=== PATIENT | female | born 1940 | race Caucasian/White ===

== ENCOUNTER 2017-02-07 00:37 | Day surgery (SDC) | payer MEDICARE, OTHER ==
[~2017-02-07] VITALS: Ht 162.6 cm; Wt 96.8 kg
[~2017-02-07 00:37] MED LIST: ACET-97 PO; CARV6.252 PO; EZET10TA PO; FLEC100T2 PO; LOSA50TA37 PO; METF500T3 PO; OMEP-113 PO; PARO20TA5 PO; POTA10TA12 PO; ROSU5TAB PO; TORS5TAB5 PO; WARF2.5T PO; WARF5TAB7 PO; slow mag PO
[2017-02-07] MEDS ORDERED: Propofol 10,000 mCg/mL 20 mL Inj ONE (00:38)
[2017-02-07] MEDS ORDERED: Lactated Ringer's 1,000 ML IV ONE ×2 (06:00→07:46)
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
[2017-02-07 13:34] VITALS: BP 157/77; PULSE 82; RESP 16; O2SAT 96
[2017-02-07] MEDS ORDERED: CARV6.252 PO (13:52)
[2017-02-07] MEDS ORDERED: ACET500C49 PO (13:52)
--- NOTE | 2017-02-07 14:00 | NUR ---
COLE ADMIT 76 YR OLD FEMALE ADMITTED TO [facility] FOR CARDIOVERSION WITH ANESTHESIA TODAY AT 1300. IV STARTED, LABS SENT, AND QUESTIONS ANSWERED.
[2017-02-07] MEDS ORDERED: Atropine 1 mg/10 mL (Code) Syringe ONE (14:19)
[2017-02-07 14:26] VITALS: BP 133/50; PULSE 40; RESP 14; O2SAT 97
[2017-02-07 14:29] VITALS: BP 131/50; PULSE 41; RESP 14; O2SAT 97
--- NOTE | 2017-02-07 14:31 | PCM.ANEP1 ---
Post Anesthesia PACU Phase 1 Assessment Vital Signs Vital Signs Date Time Temp Pulse Resp B/P Pulse Ox O2 Delivery O2 Flow Rate FiO2 02/07/17 14:29 41 14 131/50 97 Nasal Cannula 4.00 02/07/17 14:26 40 14 133/50 97 Nasal Cannula 4.00 02/07/17 13:34 37.0 82 16 157/77 96 Room Air Anesthetic Administered: GA Level of Alertness: Awake, talking REZA's with Equal Strength: Yes Pain: No Nausea or Vomiting: No CV Function & Hydration Stable: Yes Airway Device: Oxygen Delivery: Room Air Lungs: Normal Air Movement PACU Phase 2 Assessment Complications: No Follow up Care: No Patient Instructions Provided: N/A Roger Chung MD Feb 07, 2017 14:31
[2017-02-07] MEDS ORDERED: 0.9% Sodium Chloride 1,000 ML IV ONE (14:32)
[2017-02-07 14:35] VITALS: BP 136/52; PULSE 41; RESP 14; O2SAT 97
[2017-02-07] MEDS ORDERED: HYDROcodone-APAP 5-325 mg Tablet PO PRN (14:35)
[2017-02-07] MEDS ORDERED: Ondansetron 2 mg/mL 2 mL Inj IVPUSH PRN (14:35)
[2017-02-07 14:45] VITALS: BP 129/52; PULSE 42; RESP 14; O2SAT 95
[2017-02-07 15:00] VITALS: BP 138/52; PULSE 42; RESP 14; O2SAT 94
--- NOTE | 2017-02-07 15:05 | OP ---
[address] [address] CARDIOVERSION NOTE PATIENT: HAI LARA : 1940 MR#: [id number] ADMIT: 02/07/2017 JOB ID: [id number] DATE OF PROCEDURE: 02/07/2017 PROCEDURE PERFORMED: Direct synchronized countershock cardioversion of atrial fibrillation to sinus rhythm. INJECTION SPECIALIST: Neal Meier M.D., [facility] PREOPERATIVE DIAGNOSIS(ES): Atrial fibrillation. POSTOPERATIVE DIAGNOSIS(ES): Atrial fibrillation successfully converted to sinus bradycardia. INDICATIONS: The patient is a 76-year-old female with a long history of recurrent atrial fibrillation, the last such cardioversion in October 2014. She now presents with recurrent atrial fibrillation with a sense of generalized fatigue. Her flecainide has been increased but she continues with atrial fibrillation. TECHNIQUE: After informed consent was obtained, the patient was brought to the [facility] in the fasting state with documentation of ProTimes over the last month being in excess of 2.0. Today's INR was 2.6. SEDATION: Was provided by the anesthesiology service which included Versed followed by propofol which produced prompt and excellent sedation. DESCRIPTION OF PROCEDURE: A single 150 joule direct current synchronized biphasic countershock was applied via anterior and posterior patches with subsequent junctional rhythm followed by sinus bradycardia in the 40s. She maintained spontaneous respiration. She tolerated the procedure well and there were no complications. FINDINGS: 1. Successful cardioversion of atrial fibrillation to sinus bradycardia with a single 150 joule biphasic synchronized shock. 2. She had subsequent bradycardia in the 40s but was asymptomatic. 3. Adequate sedation using Versed followed by propofol. DISCUSSION AND RECOMMENDATION: The patient's flecainide has been optimized with an adequate flecainide level. We will again assess whether she notes any symptomatic improvement with rastafari of sinus rhythm. I will have her followup with a physician machine operator assistant in several weeks with an EKG. I will have her followup with Stef Mann in several weeks to reassess her rhythm and symptoms. She can followup with me at the next available appointment. In the meantime, I will have her reduce her carvedilol slightly because of her bradycardia down to just 6.25 mg b.i.d. MTDD
--- NOTE | 2017-02-07 16:11 | NUR ---
COLE DISCHARGE PT AWAKE AND SITTING AT EDGE OF BED, TOLERATED PROCEDURE WELL. SEE ANESTHESIA PAPER FLOW SHEET FOR DETAILS OF CARDIOVERSION. PT CONVERTED TO SB, POST EKG OBTAINED. DISCHARGE INSTRUCTIONS INCLUDING MEDICATIONS, F/U, AND POST SEDATION AND CV INSTRUCTIONS WERE REVIEWED AND PT VERBALIZED UNDERSTANDING. SHE WAS DISCHARGED AT 1530 IN STABLE CONDITION WITH .
== END 2017-02-07 23:59 | disposition home or self-care (01) ==
LOC: SOUO 00:37
PROVIDERS: ATTEND Specialist
DX: I48.1 Persistent atrial fibrillation (principal); G47.33 Obstructive sleep apnea (adult) (pediatric); I10 Essential (primary) hypertension; E78.5 Hyperlipidemia, unspecified; I27.2 Other secondary pulmonary hypertension; I65.23 Occlusion and stenosis of bilateral carotid arteries; Z79.899 Other long term (current) drug therapy; Z86.711 Personal history of pulmonary embolism; Z79.01 Long term (current) use of anticoagulants; K21.9 Gastro-esophageal reflux disease without esophagitis; E11.9 Type 2 diabetes mellitus without complications; Z87.891 Personal history of nicotine dependence; Z79.84 Long term (current) use of oral hypoglycemic drugs
CPT/HCPCS: 36415; 80048; 83735; 92960; 93005; J2250

== ENCOUNTER 2017-02-10 06:06 | Inpatient (IN) | payer MEDICARE, OTHER ==
[2017-02-10] VITALS (16 sets, daily range): BP systolic 131–206; BP diastolic 39–85; PULSE 51–76; RESP 12–32; O2SAT 78–98
[~2017-02-10] VITALS: Ht 162.6 cm; Wt 94.0 kg
[~2017-02-10 06:06] MED LIST changes: -ACET-97 PO; +ACET500C49 PO; -OMEP-113 PO; -POTA10TA12 PO
--- NOTE | 2017-02-10 06:25 | ED.REPORT ---
HPI-General Illness Date of Service Feb 10, 2017 ED Provider: Dr. Burrows Pt is a 76 year old female with a hx of afib on Warfarin, DM II and HTN presenting to the ED complaining of malaise and fatigue after a cardioversion a few days ago. She reports that she "just feels rotten." Associated symptoms include dyspnea on exertion, subjective fever, sore throat, and swollen glands. Denies SOB at rest, cough, or any other symptoms at this time. She was taken off Potassium following the cardioversion but has been taking Carvedilol. On arrival the pt's oxygen levels are in the 80s. She denies being on O2 at home. Nursing Notes Stated Complaint: JAW/THROAT Chief Complaint: Dysrhythmia/Cardiac Nursing Notes Reviewed: Yes Allergies: Coded Allergies: niacin (Verified Allergy, Severe, Anaphylaxis, 02/10/17) quinine (Verified Allergy, Unknown, 02/10/17) Scheduled ([slow mag]) 286 MG PO BID Acetaminophen (Acetaminophen) 500 Mg Capsule 500-1,000 MG PO Q4-6 HR PRN Carvedilol (Carvedilol) 6.25 Mg Tablet 6.25 MG PO QPM Carvedilol (Carvedilol) 6.25 Mg Tablet 12.5 MG PO QAM Ezetimibe (Zetia) 10 Mg Tablet 10 MG PO DAILY Flecainide Acetate (Flecainide Acetate) 100 Mg Tablet 100 MG PO BID Losartan Potassium (Losartan Potassium) 50 Mg Tablet 50 MG PO BID Metformin ER (Glucophage XR) 500 Mg Tab.er.24h 500 MG PO BID Paroxetine (Paroxetine) 20 Mg Tablet 20 MG PO DAILY Rosuvastatin Calcium (Crestor) 5 Mg Tablet 5 MG PO HS Torsemide (Torsemide) 5 Mg Tablet 10 MG PO AM Warfarin Sodium (Warfarin Sodium) 5 Mg Tablet 2.5 MG PO WEEKLY Miscellaneous Medications Warfarin Sodium (Warfarin Sodium) 5 Mg Tablet 5 MG PO EVERYDAY EXCEPT SATURDAY General Time Seen by MD: 06:24 Chief Complaint Not feeling well Hx Obtained From: Patient Arrived By: Walk-in Sudden in Onset?: No Onset Occurred: Just prior to arrival Symptom Duration: Since onset Location: : Mouth Quality: Painful Severity: Current: Mild Severity: Maximum: Mild Recent Healthcare: No recent hospitalization, Recent doctor visit Similar Sx Previous: No Past Medical History Past Medical History Notes: PMD Bal Past Medical History Afib on Warfarin Cardioverssion a few days ago Reports: Diabetes mellitus, Hyperlipidemia, Hypertension Family History Reviewed not relevant Smoking History Former Smoker Social History Alcohol Use: Denies alcohol use Drug Use: Denies drug use Ambulatory Status Independent Review of Systems Full Review of Systems Constitutional: Reports: Fatigue, Fever, Malaise Ears / Nose / Throat: Reports: Sore throat Respiratory: Reports: Dyspnea on exertion, Denies: Non-productive cough, Shortness of breath Cardiovascular: Denies: Chest pain Complete sys rev & neg: except as marked. Physical Exam Vital Signs Vital Signs Date Time Temp Pulse Resp B/P Pulse Ox O2 Delivery O2 Flow Rate FiO2 02/10/17 08:21 51 16 137/45 78 Room Air 02/10/17 06:32 53 16 145/45 95 Nasal Cannula 2 02/10/17 06:21 37.2 54 12 150/40 84 Room Air Initial VS: Reviewed Head / Eyes: Atraumatic, Normocephalic, PERRL ENT: Mucous membranes moist, Conjunctiva normal, No scleral icterus Respiratory: Breath sounds normal, Clear to auscultation, No respiratory distress Abdomen / GI: Soft, Non-tender, No guarding, No rebound, No distention Extremities: Vascular intact, Neuro intact, No swelling, No tenderness Skin: Warm, Dry, No cyanosis Neurologic: Alert, Oriented, Nonfocal Psychiatric: Mood/affect normal, Behavior normal, Normal thought content General/Constitutional: Awake, Alert Hypoxic Cardiovascular: Heart rate NL, Regular rhythm Heart Sounds / Murmur: Positive: Murmur present... (II/ at apex) Lower Extremity / Pelvis / MS: Atraumatic, Inspection NL, No edema Interpretation & Diagnostics Lab Results Interpretation Result Diagram: 02/10/17 0635 02/10/17 0635 Test 02/10/17 06:35 White Blood Count 8.4th/mm3 (3.8-10.1) Red Blood Count 3.09mil/mm3 (3.90-5.20) Hemoglobin 9.8g/dL (12.0-15.6) Hematocrit 30.2% (35.0-46.0) Mean Corpuscular Volume 97.7fL (81-100) Mean Corpuscular Hemoglobin 31.7pg (27.0-35.0) Mean Corpuscular Hemoglobin Concent 32.5% (32.0-37.0) Red Cell Distribution Width 13.3% (12.3-15.4) Platelet Count 134bil/L (150-400) Neutrophils (%) (Auto) 79.9% (40-74) Lymphocytes (%) (Auto) 6.0% (14-46) Monocytes (%) (Auto) 11.1% (4-12) Eosinophils (%) (Auto) 2.4% (0-5) Basophils (%) (Auto) 0.4% (0-3) Prothrombin Time 34.5sec (8.1-12.5) Prothromb Time International Ratio 3.15ratio Sodium Level 138mEq/L (134-144) Potassium Level 5.1mEq/L (3.5-5.2) Chloride Level 103mEq/L (97-108) Carbon Dioxide Level 20mmol/L (18-29) Blood Urea Nitrogen 46mg/dL (8-27) Creatinine 1.24mg/dL (0.57-1.00) Estimat Glomerular Filtration Rate 60mL/min (>59) Glucose Level 186mg/dL (60-99) Calcium Level 8.7mg/dL (8.5-10.1) Magnesium Level 2.2mg/dL (1.6-2.6) Total Bilirubin 1.4mg/dL (0.0-1.2) Aspartate Amino Transf (AST/SGOT) 20U/L (0-50) Alanine Aminotransferase (ALT/SGPT) 14U/L (0-32) Alkaline Phosphatase 49U/L (25-165) Pro-B-Type Natriuretic Peptide 869.2pg/mL (0-738) Total Protein 6.8g/dL (6.4-8.4) Albumin 3.9g/dL (3.4-5.0) Hold Forrest Top Tube Received (Received) ECG Interpretation ECG Interpretation: Sinus bradycardia. 1st degree AV block. Nonspecific ST changes. Non changed from prior. Time: 06:29 Interpreted by: ED physician Abnormal Rate: 40 (47) Time: 08:52 Interpreted by: ED physician Normal ECG Interpretation: Normal sinus rhythm Abnormal Rate: 40 (46) X-Ray Chest Interpretation Chest Xray Interpretation: IMPRESSION: Chronic mild interstitial prominence, mildly reduced inspiratory volume, no definite acute disease. Dictated by: Deon Freeman M.D. on 02/10/2017 at 7:48 View: Portable, 1 view Interpretation / Wet Read by: Interpret - Radiologist Re-Eval/Medical Decision Med Decision/Clinical Course Will admit. Time of Eval: 08:09 Patient Status: Condition improved Re-Evaluation/Progress Note: Pt feeling a bit better. Took her off Oxygen and her SATs went down to 79. Pt put back on Oxygen. Consultation #1: Referral / Consult Name: Ethel Early MD Consulted With: Cardiology Call Returned at: 08:19 Note: Recommends admission and probable pacemaker. Continue Coumadin and plan to have Dr. Dobbs see the patient. Consultation #2: Referral / Consult Name: PETER ZAVALETA DO Consulted With: Hospitalist Call Returned at: 09:10 Sas Sql Developer: Will see patient, Agrees with plan, Accepts admit Counseled Regarding: Diagnosis, Lab results, Need for follow-up, When/why to return to ED Discharge & Departure Primary Impression: Atrial fibrillation Atrial fibrillation type: chronic Qualified Code: I48.2 - Chronic atrial fibrillation Disposition: ADMITTED TO HOSPITAL Discharge Condition All VS Reviewed: Yes Condition: Improved Referrals: Valeriano Rader MD (PCP) Monique Attestation Portions of this note were transcribed by Bonnie Baum. I, Dr. Burrows personally performed the history, physical exam and medical decision-making; I reviewed and confirmed the accuracy of the information in the transcribed note. Signed by: Monique Mckeon, 02/10/2017 at 0911. copies to: Valeriano Rader MD, Timothy S DO Feb 10, 2017 06:25 BONNIE BAUM Feb 10, 2017 06:35 BONNIE BAUM Feb 10, 2017 06:35 reviewed and confirmed the accuracy of the information in the transcribed note. Signed by: Monique Mckeon, 02/10/2017 at 0911. copies to: Valeriano Rader MD, Timothy S DO Feb 10, 2017 06:25 BONNIE BAUM Feb 10, 2017 06:35
[2017-02-10 06:56] LABS: BASOPHILS % (AUTO) 0.4 % (0-3); EOSINOPHILS % (AUTO) 2.4 % (0-5); MONOCYTES % (AUTO) 11.1 % (4-12); Mean Corpuscular Hemoglobin 31.7 pg (27.0-35.0); Mean Corpuscular Volume 97.7 fL (81-100); NEUTROPHILS % (AUTO) 79.9 % (40-74); Platelet Count 134 bil/L (150-400)
[2017-02-10 07:07] LABS: INR 3.15 ratio
[2017-02-10 07:13] LABS: TROPONIN T 0.01 ug/L (0.0-0.011)
[2017-02-10 07:24] LABS: Magnesium 2.2 mg/dL (1.6-2.6)
--- NOTE | 2017-02-10 07:50 | DRSVH ---
PROCEDURE: X-RAY CHEST ONE VIEW, PORTABLE ([id number]) INDICATIONS: malaise TECHNIQUE: One view of the chest was acquired. COMPARISON: [facility], CR, XR CHEST 2VW, 08/29/2015, 16:06. [facility], CR , XR CHEST 2VW, 07/28/2015, 13:25. FINDINGS: Surgical changes and devices: None. Lungs and pleura: No pleural effusions or pneumothorax. Lungs are clear except for a mild interstit ial prominence chronically present superimposed on mildly reduced inspiratory volume. Mediastinum: Mediastinal contours appear normal. Heart size is normal. Bones and chest wall: No suspicious bony lesions. Overlying soft tissues appear unremarkable. IMPRESSION: Chronic mild interstitial prominence, mildly reduced inspiratory volume, no definite acu te disease. Dictated by: Deon Freeman M.D. on 02/10/2017 at 7:48 Approved by: Deon Freeman M.D. on 02/10/2017 at 7:49
[2017-02-10] MEDS ORDERED: Ondansetron 2 mg/mL 2 mL Inj IVPUSH PRN (08:45)
[2017-02-10] MEDS ORDERED: Alum-Mag Hydrox-Simeth 30 mL Suspension PO PRN (08:45)
[2017-02-10] MEDS ORDERED: Polyethylene Glycol (PEG) 17 Gm Powder PO PRN (08:45)
[2017-02-10] MEDS ORDERED: Famotidine 10 mg/mL 2 mL Inj IVPUSH ONE (09:40)
--- NOTE | 2017-02-10 10:30 | PCM.HPMED ---
Subjective Date of Service Feb 10, 2017 Primary Provider: Admitting Physician: Shaq Landa DO Primary Care Physician: Valeriano Rader MD Attending Physician: Shaq Landa DO Chief Complaint: Malaise and shortness of breath. History of Present Illness: Ms. Christen Everett is a very pleasant 76 year old female with a past medical history significant for afib on Warfarin with cardioversions "x4", DM II, SHAWN on CPAP at home and HTN presenting to the ED complaining of malaise and fatigue after a cardioversion 02/07/17. She reports mild nausea, moderate malaise, dyspnea on exertion, lightheaded and "wobbly", subjective fevers and chills, 1 month progressive LE edema, reproducible left cheek pain and "swollen glands" following cardioversion, and some intermittent "electric" chest pain over her heart, and feeling distended. She denies syncope, headache, change in vision, vomiting, anginal pain, constipation, diarrhea, dysuria. Of note: She reports brief history of 2L O2 at night and with exertion following her 2nd cardioversion "around 2013" for O2 sats' in the 's. After 1 year she stopped using home O2. In the ED vitals are as follows; temp 37.2, HR 54, RR 12, BP 150/40, 84% RA, and 95% on 2L. Review of Systems: A comprehensive review of systems was conducted with the patient and found to be negative except as above in the History of Present Illness. Allergies Coded Allergies: niacin (Verified Allergy, Severe, Anaphylaxis, 02/10/17) quinine (Verified Allergy, Unknown, 02/10/17) Home Medications Acetaminophen (Acetaminophen) 500 Mg Capsule 500 MG PO Q4-6 HR PRN Carvedilol (Carvedilol) 6.25 Mg Tablet 6.25 MG PO BID Ezetimibe (Zetia) 10 Mg Tablet 10 MG PO DAILY Flecainide Acetate (Flecainide Acetate) 100 Mg Tablet 100 MG PO BID Losartan Potassium (Losartan Potassium) 50 Mg Tablet 50 MG PO BID Metformin ER (Glucophage XR) 500 Mg Tab.er.24h 500 MG PO BID Paroxetine (Paroxetine) 20 Mg Tablet 20 MG PO HS Rosuvastatin Calcium (Crestor) 5 Mg Tablet 5 MG PO DAILY Torsemide (Torsemide) 5 Mg Tablet 10 MG PO AM Warfarin Sodium (Coumadin) 2.5 Mg Tablet 2.5 MG PO DAILY PMH Afib on Warfarin Cardioverssion a few days ago Reports: Diabetes mellitus, Hyperlipidemia, Hypertension Surgical History none Family History Could not report Social History Hx Alcohol Use: No Hx Substance Use: No Hx Tobacco Use: Yes (Smoked for ~ 20 years, Quit 20 years ago.) Smoking Status: Former Smoker Exam Vital Signs Vital Sign - Last Date Time Temp Pulse Resp B/P Pulse Ox O2 Delivery O2 Flow Rate FiO2 02/10/17 08:21 51 16 137/45 78 Room Air 02/10/17 06:32 2 02/10/17 06:21 37.2 Exam General: Elderly lady lying in bed in No acute distress, well-developed and obese, well-nourished, appropriately interactive HEENT: Normocephalic, atraumatic. External ears without defect. Pupils equal, round, and reactive to light and accommodation. Anicteric sclerae, moist conjunctivae, and no lid lag. Oropharynx free of erythema and cobble stoning with moist mucosa. Neck: Supple with full range of motion. No jugular venous distension but it was difficult to evaluate due to neck habitus. No bruits. No lymphadenopathy or thyromegaly. Cardiovascular: Demarco rate and regular rhythm with no murmurs, rubs, or gallops appreciated Pulmonary: Clear to auscultation bilaterally with no crackles, wheezes, or rhonchi. Normal respiratory effort with no use of accessory muscles. Abdomen: Bowel tones present. Soft, nontender, Mildly distended. No hepatosplenomegaly or masses appreciated. Extremities: No clubbing, cyanosis, very mild lower extremity edema, or lymphadenopathy appreciated. Skin: Normal temperature, turgor, and texture; no rash, ulcers, or subcutaneous nodules appreciated. Neurological: Cranial nerves grossly intact. Normal muscle strength, tone, and bulk. Reflexes, coordination, and sensory function within normal limits. No known gait impairment. Psychiatric: Normal mood and affect. Alert and oriented to person, place, and time. Lab and Diagnostics Result Diagram: 02/10/1763402/10/17634 Assessment & Plan Ms. Christen Everett is a 76 year old lady here following cardioversion 02/07 for persistent A-fib, with malaise, hypoxia, subjective fever and chills likely here for ablation or permanent pacemaker placement. Symptomatic Bradycardia, present on admission. Active. - Patient was d/c'd home following cardioversion with HR in the 40's. 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 - Holding home flecainide, carvedilol unless HR >60 bpm. - Remote Telemetry. - Cardiology following. Recommendations appreciated. Considering - ECHO ordered. Chronic Persistent A-fib, on chronic warfarin, present on admission. Controlled. - Currently controlled with flecainide and carvedilol BID. Will hold per cards recommendations. - Patient was cardioverted 02/07 (4x cardioversions) - Will continue home warfarin for now. Acute on Chronic hypoxic respiratory failure, present on admission. Active. - Patient on 2L O2 in the ED. Previous history of 2L nocturnal home O2 in ~2014 for 1 year duration that patient d/c'd herself. - Continue pulse ox. Chronic conditions: DMII, present on admission. Active. - Heart healthy diet. - Holding home metformin. HTN - Continue home medications; losartan, torsemide. HLD - Continue home zetia SHAWN - Continue home CPAP at night. Obesity - BMI 37.3 - Heart healthy diet. - Physical therapy when appropriate. GERD - continue home omeprazole continue home Paroxetine. Acetaminophen for mild pain when necessary. Bowel regimen Senna and MiraLAX scheduled and PRN. Zofran when necessary for nausea and vomiting. SubQ heparin held for now. SCDs in place. High-risk medications: Warfarin Disposition: Likely here for > 2 midnights. Dependent upon cardiac status. Will be discharged to home when medically stable. Pain Evaluation: Adequate Pain Control Resuscitation Status: CPR: Attempt Resuscitation Time spent 55 minutes Attending Statement I have seen and evaluated the patient at bedside in addition to directly supervising care provided by resident physician. I agree with above documentation by Dr Zavaleta on 02/10/2017. Patient was admitted in stable condition as detailed above however once and floor began to decompensate quickly regard increased work of breathing and increasing oxygen requirements. X-ray demonstrated diffuse infiltrates and there is concern for flash pulmonary edema prompting administration of Lasix, which was only moderately effective in reducing patient's labored breathing. Subsequent BiPAP application effectively relieved excessive work. Patient's respiratory distress was essentially resolved at these 2 interventions and improved greatly through the afternoon. Cardiology previously counseled and evaluated patient has further plans possible intervention including pacemaker which will be considered as soon as tomorrow. PETER ZAVALETA DO Feb 10, 2017 09:51 Shaq Landa DO Feb 10, 2017 18:38
[2017-02-10] MEDS ORDERED: CARV6.252 PO (12:02)
[2017-02-10] MEDS ORDERED: WARF5TAB7 PO (12:19)
--- NOTE | 2017-02-10 13:01 | PCM.CHPCAR ---
Consult Subjective Date of service Feb 10, 2017 Date of admit Feb 10, 2017 at 08:45 Provider Requesting Consult Primary Care Physician Primary Care Physician: Valeriano Rader MD Chief Complaint Worsening Malaise, Fatigue and SOB History of Present Illness Patient is a 76 yr old female with a long history of paroxysmal atrial fibrillation on (warfarin, flecainide and carvedilol); DM, hypertension, hyperlipidemia, obstructive sleep apnea on CPAP, and chronic hypoxemic respiratory failure (on supplemental Oxygen but non-compliant). Pt is here for chief complaint of malaise, fatigue and SOB that started after her DC cardioversion on 02/07/17. Operative reports by Dr. Meier show successful cardioversion of Afib to sinus bradycardia with HR of 40 bpm. However, as pt was asymptomatic, she was sent home. She had been taking flecainide 100 mg po bid since d/c but holding off on Carvedilol due to bradycardia. Her HR at home was still low on that medicine. Last night (02/09/2017) she took carvedilol 3.125 mg x1. She says malaise has been getting progressively worse as if she got hit by a truck, accompanied by SOB, dyspnea, chills, nausea, headaches and subjective fever. She reports that she was feeling electrical pulses shooting from her sternum on the left side to her left jaw line. She denies lightneadedness, chest pain. She meets criteria for supplemental O2 (at rest 88%, with activity 82%), but is non-compliant. This morning she was fatigued, but pain free and comfortable Review of Systems Review of Systems On ROS, patient reports headaches, SOB, dyspnea , nausea, chills, malaise, fatigue, and subjective fever. 11 point ROS unremarkable except for those described in HPI General: Reports: Fatigue Isolated chills Eyes: Reports: Other Problem/recent change in vision Reduced vision Temporary vision loss Denies: Double or blurred vision Problem or recent change in eyes Respiratory: Reports: Significant dyspnea PMH Past Medical History Paroxysmal Atrial Fibrillation on Warfarin for stroke prevention, flecainide 100 mg po bid and Coreg for rhythm control. However, she has not really been taking Carvedilol since cardioversion, and was only on Flecainide Multiple DCCV - 02/08/2014, 04/14/2014, 10/25/2014 and 02/07/2017 DM - on oral hypoglycemic only HTN - controlled at home HL - (on both Rosuvastatin and Ezetimide) - controlled SHAWN - compliant wiht CPAP Chronic hypoxemic respiratory failure with normal spirometry and lung imaging; low DLCO (53% predicted) and no stigmata of pHTN by echo. Closely monitored by Dr. Mcmanus; on supplemental O2 Past Surgical History Hysterectomy Bedside Blood Glucose: 180 Scheduled ([slow mag]) 286 MG PO BID (Reported) Acetaminophen (Acetaminophen) 500 Mg Capsule 500-1,000 MG PO Q4-6 HR PRN ( Reported) Carvedilol (Carvedilol) 6.25 Mg Tablet 6.25 MG PO QPM (Reported) Carvedilol (Carvedilol) 6.25 Mg Tablet 12.5 MG PO QAM (Reported) Ezetimibe (Zetia) 10 Mg Tablet 10 MG PO DAILY (Reported) Flecainide Acetate (Flecainide Acetate) 100 Mg Tablet 100 MG PO BID (Reported) Losartan Potassium (Losartan Potassium) 50 Mg Tablet 50 MG PO BID (Reported) Metformin ER (Glucophage XR) 500 Mg Tab.er.24h 500 MG PO BID (Reported) Paroxetine (Paroxetine) 20 Mg Tablet 20 MG PO DAILY (Reported) Rosuvastatin Calcium (Crestor) 5 Mg Tablet 5 MG PO HS (Reported) Torsemide (Torsemide) 5 Mg Tablet 10 MG PO AM (Reported) Warfarin Sodium (Warfarin Sodium) 5 Mg Tablet 2.5 MG PO WEEKLY (Reported) Miscellaneous Medications Warfarin Sodium (Warfarin Sodium) 5 Mg Tablet 5 MG PO (Reported) EVERYDAY EXCEPT SATURDAY Discontinued Medications Acetaminophen (Acetaminophen) 500 Mg Tablet 500 MG PO Q4-6H (Reported) Carvedilol (Carvedilol) 25 Mg Tablet 25 MG PO BID (Reported) Carvedilol (Carvedilol) 6.25 Mg Tablet 6.25 MG PO QPM (Reported) Flecainide Acetate (Flecainide Acetate) 50 Mg Tablet 50 MG PO TID (Reported) Losartan Potassium (Losartan Potassium) 25 Mg Tablet 12.5 MG PO DAILY (Reported ) Omeprazole Magnesium (Omeprazole) 20 Mg Capsule.dr 20 MG PO PRN (Reported) Potassium Chloride ER (Potassium Chloride ER) 10 Meq Tablet.er 20 MEQ PO DAILY ( Reported) TAKE WITH FOOD Pravastatin (Pravastatin) 10 Mg Tablet 20 MG PO HS (Reported) Warfarin Sodium (Coumadin) 2.5 Mg Tablet 2.5 MG PO DAILY (Reported) TUESDAYS ONLY Current Inpatient Medications Current Medications Al Hydrox/Mg Hydrox/Simethicone 30 ml Q6H PRN PO; Start 02/10/17 at 08:45 Ondansetron HCl 4 to 8 mg Q4H PRN IVPUSH; Start 02/10/17 at 08:45 Senna 17.2 mg BID PRN PO; Start 02/10/17 at 08:45 Polyethylene Glycol 17 gm DAILY PRN PO; Start 02/10/17 at 08:45 Carvedilol 6.25 mg BID PO; Start 02/10/17 at 10:35; Stop 02/10/17 at 10:54; Status DC EZETIMIBE 10 mg DAILY PO; Start 02/10/17 at 10:35 Losartan Potassium 50 mg BID PO; Start 02/10/17 at 10:35; Stop 02/10/17 at 12:27; Status DC Paroxetine HCl 20 mg HS PO; Start 02/10/17 at 21:00 Rosuvastatin Calcium 5 mg DAILY PO; Start 02/10/17 at 10:35 Non-Formulary Medication 100 mg BID PO; Start 02/10/17 at 10:35; Stop 02/10/17 at 10:54; Status DC Torsemide 10 mg DAILY PO; Start 02/10/17 at 11:01 Pharmacy Consult 1 ea DAILY@17 XX; Start 02/10/17 at 17:00 Carvedilol 6.25 mg BID PRN PO; Start 02/10/17 at 10:55; Stop 02/10/17 at 12:24; Status DC Flecainide Acetate 100 mg BID PRN PO; Start 02/10/17 at 10:55; Stop 02/10/17 at 12:24; Status DC Losartan Potassium 50 mg DAILY PO; Start 02/11/17 at 08:30 Allergies: Coded Allergies: niacin (Verified Allergy, Severe, Anaphylaxis, 02/10/17) quinine (Verified Allergy, Unknown, 02/10/17) Family History Family History Father from Acute myocardial Infarction at age 57 Social History Hx Alcohol Use: NoHx Substance Use: NoHx Tobacco Use: Yes (Smoked for ~ 20 years, Quit 20 years ago.) Smoking Status: Former Smoker (20 pack year hx, quit 25 years ago ) Living Arrangement: with Family (with ) Exam Vital Signs Vital Sign - Last Date Time Temp Pulse Resp B/P Pulse Ox O2 Delivery O2 Flow Rate FiO2 02/10/17 11:38 59 02/10/17 11:23 36.7 24 192/84 96 Nasal Cannula 4.00 Objective General: Patient is obese female laying in bed , AAOX3, not in acute distress. She is cooperative and pleasant. HEENT: head normocephalic and atraumatic, PERRLA, EOMI, no scleral icterus, mucous membranes dry Neck: no JVD, neck supple, non-tender, no lymphadenopathy, trachea midline CV: regular rate and rhythm, s1 and s2 heard, no murmur, radial pulses 2+ and equal bilaterally Lungs: CTA BL, no wheezes, rales or rhonchi, no increased work of breathing, on Oxygen nasal canula Abdomen: normoactive bowel sounds on 4Q, soft, non-tender to palpation, no organomegally Skin: moist , no rashes or lesions Extremities: no edema Musculoskeletal: 5/5 muscle strength on UE and LE bilaterally. Psych: Pleasant and cooperative male, very interactive Lab and Diagnostics Result Diagram: 02/10/17 0635 02/10/17 0635 X-Rays, CTs and MRIs CXR on 02/10/17 MPRESSION: Chronic mild interstitial prominence, mildly reduced inspiratory volume, no definite acute disease. Dictated by: Deon Freeman M.D. on 02/10/2017 at 7:48 12-lead ECG ECG on 02/10/17 at 6:29 am showed sinus bradycardia with HR at 47, and first- degree AV block Additional Diagnostics: Her last ECHO was on 07/04/15 at [facility], which showed LV EF of 57.4%, moderate LVH, and mild left atrial enlargement. stress echo 2013 - no ischemia or prior infarct CT 2014 was reviewed- incidentally identified significant coronary calcification and aortic calcification Assessment & Plan Assessment Patient is a 76 yr old female with a long history of paroxysmal atrial fibrillation with multiple cardioversions on warfarin, flecainide and carvedilol ; hypertension, hyperlipidemia, obstructive sleep apnea on CPAP, and diabetes mellitus II who complains of malaise, fatigue and dyspnea that started after her DC cardioversion on 02/07/17. Pain Evaluation: Adequate Pain Control Plan: Tachycardia-Bradycardia syndrome -Patient presents with symptomatic bradycardia with HR in 40s -Order ECHO to gauge structural basis of afib - of note electrolytes with hyperkalemia, tsh wnl as of 12/2016 in clinic -Hold antiarrhythmics Carvedilol and Flecainide and check heart rate tomorrow for improvement -If no improvement in heart rate, discuss pacemaker placement -Contacted Dr. Dobbs and he is aware - if rate responds favourably to holding antiarrhythmics, pt becomes eligible for ablation Hypertension -Decrease Losartan from 50 mg bid to 50 mg once a day due to high potassium Hyperlipidemia -Continue home dose of Zetia and Rosuvastatin; this is the drug mix recommended by Dr. Hardeep power [facility] lipids showed tc 181 tg 267 hdl 49 ldl 79 Hypoxemia Old observation; managed by Dr. Mcmanus; recommend compliance with supplemental O2 recommendations as outlined by Dr. Mcmanus Atherosclerosis noted on CT scan - pt has coronary calcifications, and reassuring stress echo in 2013. If troponins are elevated, low threshold to repeat ischemic evaluation Atypical chest pain (electrical left sided shooting sensations in her chest)- serial troponins DM - controlled on metformin; last A1c 7.1 as of 11/01/2016. I recommend holding metformin in anticipation of possible ppm implant (which involves some iodinated contrast agent injection) Resuscitation Status: CPR: Attempt Resuscitation Attending Statement I agree with note of Dr. Aguirre. I examined the pt and participated in formulating this A&P Of note >60 min were spent on H&P, A&P, counseling and care coordination Oksana Aguirre DO Feb 10, 2017 13:01 Ethel Early MD Feb 10, 2017 14:23
--- NOTE | 2017-02-10 13:16 | NUR ---
[facility] signed [id number]
--- NOTE | 2017-02-10 13:55 | ABG ---
DateTimeAnalyzed 13:46:50 -_ pH ____7.354 - 7.350 7.450 pCO2 ___41.1__ -mmHg 35.0 45.0 pO2 ___61.9__ -mmHg 69.0 116 HCO3- ___22.9__ -mmol/L 22.0 26.0 ABE ___-2.5__ -mmol/L tHb ___11.0__ -g/dL O2Hb ___88.3__ -% COHb ____1.0__ -% 1.5 MetHb ____0.6__ -% sO2 ___89.7__ -% FIO2 ___21.0__ -% Drawn By RC - Date/Time Notified____ 13:55:00 -_ Spontaneous_RR 36 -b/min Liter_Flow ____6.00_ -L/min Oxygen Device 1 __OXYMASK - Notified By RC - Notified Whom ___DR. MCCART - K+ ____4.9__ -mmol/L tO2 ___13.7__ -Vol% Dm test _Positive -
[2017-02-10] MEDS ORDERED: Furosemide 10 mg/mL 4 mL Inj ONE (13:57)
[2017-02-10 14:43] LABS: APPEARANCE,URINE CLEAR (CLEAR,HAZY); COLOR,URINE STRAW (YELLOW); OCCULT BLOOD,URINE TRACE (NEGATIVE); UROBILINOGEN,URINE NORMAL (NORMAL)
--- NOTE | 2017-02-10 15:07 | DRSVH ---
PROCEDURE: X-RAY CHEST ONE VIEW, PORTABLE ([id number]) INDICATIONS: SHORTNESS OF BREATH TECHNIQUE: One view of the chest was acquired. COMPARISON: None. FINDINGS: Surgical changes and devices: None. Lungs and pleura: No pleural effusions or pneumothorax. Lungs are diffusely edematous. Mediastinum: Mediastinal contours appear normal. Heart size is at the upper limits of normal. Bones and chest wall: No suspicious bony lesions. Overlying soft tissues appear unremarkable. IMPRESSION: Diffuse pulmonary edema pattern, which statistically is more likely cardiogenic than inf ectious in origin. This appearance was not previously present on plain films from 2014 and 2015. Dictated by: Deon Freeman M.D. on 02/10/2017 at 15:05 Approved by: Deon Freeman M.D. on 02/10/2017 at 15:05
--- NOTE | 2017-02-10 16:44 | NUR ---
Admission received report from the ER, Cely GARCIA. patient arrived to room 2003 at 1120hrs. Assumed care at that time.
--- NOTE | 2017-02-10 16:56 | NUR ---
increased SOB at approx 1330hrs patient started c/o worsening SOB and O2 sat started to decrease. on NC at 4L/min O2 sat decreased to 88-91%, changed to OxyMask and increased to 6L/min. sats did improved to 94%. then patient used BSC. when attempting to return to bed patient became more SOB, O2 sat dropped to mid-80's in OxyMask. it took several minutes for patient to get back into bed. Sats still remained 86-90%. effort to breath increased; increased resp rate to 32-36min, patient's color became ashen/iverson and increased use of excretory muscles. Dr Malone notified. new orders received. ABGs, chest Xray and ECG ordered and initiated. Chest Xray showed worsening pulmonary edema. Cardiology was called, new orders for whitfield cath and IV lasix 40mg x1, and increased oxygen to NRB at 15L/min ordered. lasix given, whitfield catheter placed 16Fr draining pale yellow urine to gravity. patient's O2 sat improved to mid-90's, but patient still was having an increased effort to breath and showing signs of fatigue. Dr Malone and Dr Landa notified and BiPAP was ordered. patient started on BiBAP at 1500hrs. within 20-30 minutes patient showed signs of improvement; reports an easier time breathing, improved O2 sats (high 90's), improved color. patient remains on BiPAP through the rest of day shift. continue to monitor
--- NOTE | 2017-02-10 18:08 | NUR ---
Trial off BiPAP at 1800hrs removed BiPAP for dinner, trial to see if patient is able to maintain O2sat with NC at 4L/min. Dr Bentley aware and would like to put patient back on BiPAP overnight while sleeping.
--- NOTE | 2017-02-10 18:31 | NUR ---
BiPAP patient able to eat dinner while off BiPAP, but after she finished eating she started to c/o increasing SOB again and requesting that the BiPAP be restarted. O2 sat 90% on 4l/mn NC. Restarted BiPAP and O2 sat increased to 98%. patient reports feeling better on BiPAP.
--- NOTE | 2017-02-10 18:42 | DRSVH ---
[facility] [address] [place] [address] Echocardiogram Report Name: HAI LARA JStudy Date: 02/10/2017 Height: 64 in Hospital Exam Location: [facility] Weight: 213 lb Gender: Female BSA: 2.0 m2 : 1940 Age: 76 yrs BP: 192/84 mm Hg Reason For Study: TACHY-MERCEDES SYNDROME Ordering Physician: HOSPITALIST [facility] Performed By: Denis Roldan Referring Physician: WASHINGTON MENDOZA Interpretation Summary Normal sinus rhythm. Moderately dilated LV; there is apical and distal segment severe hypokinesis consistent with stress cardiomyopathy. EF is 35-40%. Moderate MAC with mild-moderate MR. Aortic valve leaflets are normal. No regurgitation or stenosis. Compared to prior study 04/17/2014 LV is more dilated. End diastolic dimension progressed from 5.2 to 6.5 cm. Cardiomyopathy is newly described Procedure: A two-dimensional transthoracic echocardiogram with color flow and Doppler was performed. The study quality was technically adequate. Comparison is made with the echocardiogram of 04/17/14. The patient was in normal sinus rhythm during the exam. Left Ventricle: The left ventricle is moderately dilated. The ejection fraction is estimated to be 35-40%. there is apical and distal segment severe hypkinesis consistent with stress cardiomyopathy. Assessment of diastolic parameters indicates a restrictive filling pattern of the left ventricle consistent with significantly elevated filling pressures. Right Ventricle: The right ventricle is mildly dilated. Right ventricular systolic function is mildly reduced. Atria: There is mild biatrial enlargement. The interatrial septum is intact with no evidence for an atrial septal defect. Mitral Valve: The mitral valve leaflets are mildly calcified. There is moderate mitral annular calcification. There is mild to moderate mitral regurgitation. There are multiple regurgitant jets present. Aortic Valve: The aortic valve is trileaflet. The aortic valve is slightly calcified. There is no aortic valve stenosis. No aortic regurgitation is present. Tricuspid Valve: The tricuspid valve is not well visualized, but is grossly normal. There is mild to moderate tricuspid regurgitation. The right ventricular systolic pressure is estimated at 62 mmHg assuming a right atrial pressure of 15 mm Hg. Pulmonic Valve: The pulmonic valve leaflets are thin and pliable; valve motion is normal. There is moderate pulmonic regurgitation. Great Vessels: The aortic root is normal size. The ascending aorta is mildly enlarged. The pulmonary artery is normal size. The IVC is dilated (diameter is greater than 2.1 cm) and it collapses less than 50% with a sniff. This suggests a high right atrial pressure of 15 mm Hg. Pericardium/ Pleura There is no pericardial effusion. There is no pleural effusion. MMode/2D Measurements & Calculations LVIDd: 6.4 cm RA long axis LVOT diam: 2.0 cm LVIDs: 5.7 cm LA A2 area: 23.7 cm AoV Opening FS: 9.7 % LA A4 area: 23.7 cm RA area IVSd: 0.74 cm LA length (vol) Ao root diam LVPWd: 0.75 cm : 22.2 cm LA vol: 78.1 ml RA vol asc Aorta Diam LA vol index : 73.7 ml RA Ao Arch Diam (Prox : 36.7 mm2 Trans): 3.2 cm IVC diam: 2.2 cm LV vidal. diameter/BSA LV sys. diameter/BSA RVD1 (basal) TAPSE: 1.8 cm (cm/m^2): 3.2 (cm/m^2): 2.9 Doppler Measurements & Calculations Ao V2 max MV E max william MV E/A: 4.8 TR max william : 154.0 cm/sec : 168.9 cm/sec Med Peak E' William : 341.1 cm/sec Ao max P.5 mmHg MV A max william TR max PG Ao mean P.2 mmHg : 35.4 cm/sec E/E' med: 42.2 : 46.5 mmHg LVOT Max William Lat Peak E' William PA V2 max : 97.9 cm/sec MVA(VTI): 1.4 cm2 : 128.8 cm/sec E/E' lat: 27.7 PA mean PG ODILON(I,D): 2.1 cm E/e' average : 3.4 mmHg sev ratio: 0.71 MV V2 mean Ao V2 mean LV V1 max PG PA V2 mean : 69.7 cm/sec : 94.5 cm/sec : 86.6 cm/sec MV mean P.1 mmHg Ao V2 VTI: 25.5 cmLV V1 VTI MV V2 VTI: 37.9 cm : 18.1 cm MV dec time: 0.18 sec ODILON(V,D): 1.9 cm2 ODILON indexed to BSA (cm^2/m^2): 1.1 Reading Physician:06:41 PM
[2017-02-10] MEDS: PARoxetine 20 mg Tablet PO SCH (21:22)
[2017-02-11] VITALS (15 sets, daily range): BP systolic 112–132; BP diastolic 48–72; PULSE 57–72; RESP 16–24; O2SAT 95–100
--- NOTE | 2017-02-11 03:24 | NUR ---
Bi-Pap/Tele A&O x 3 using call light appropriately , SBA to BCS, BiPap , 50% Fi02, NO C/O pain. Temp of 38, gave 650 tylenol , lowered temp to, 36.3. Tele S-S Demarco, 1st degree. O2 sat in mid 90's
[2017-02-11 03:35] LABS: INR 3.27 ratio
[2017-02-11 07:59] LABS: BASOPHILS % (AUTO) 0.2 % (0-3); EOSINOPHILS % (AUTO) 0.5 % (0-5); MONOCYTES % (AUTO) 10.4 % (4-12); Mean Corpuscular Volume 96.3 fL (81-100); NEUTROPHILS % (AUTO) 84.8 % (40-74); Platelet Count 127 bil/L (150-400)
[2017-02-11] MEDS ORDERED: Furosemide 10 mg/mL 4 mL Inj IVPUSH ONE (08:30)
--- NOTE | 2017-02-11 09:03 | DRSVH ---
PROCEDURE: X-RAY CHEST ONE VIEW, PORTABLE ([id number]) INDICATIONS: SHORTNESS OF BREATH TECHNIQUE: One view of the chest was acquired. COMPARISON: [facility], CR, XR CHEST 1VW (PORTABLE), 02/10/2017, 13:52. FINDINGS: Surgical changes and devices: None. Lungs and pleura: No pleural effusions or pneumothorax. Improving patchy opacities in the medial rig ht lung base. There also improved retrocardiac opacities. Mediastinum: Mediastinal contours appear normal. Heart size is normal. Bones and chest wall: No suspicious bony lesions. Overlying soft tissues appear unremarkable. IMPRESSION: Improved bibasilar patchy groundglass opacities since yesterday suggestive of improving pulmonary nito ma. Please correlate clinically. No new focal consolidation. Dictated by: Matias Rivera M.D. on 02/11/2017 at 8:59 Approved by: Matias Rivera M.D. on 02/11/2017 at 9:01
--- NOTE | 2017-02-11 10:34 | PROG NOTE ---
[address] [address] PROGRESS NOTE PATIENT: HAI LARA : 1940 MR#: [id number] ADMIT: 02/10/2017 JOB ID: [id number] DATE: 02/11/2017 SUBJECTIVE: The patient is a 76-year-old female with longstanding intermittent paroxysmal atrial fibrillation which has generally been fairly well controlled on flecainide and low-dose carvedilol, although with recent recurrence, and therefore underwent elective outpatient cardioversion on February 07, 2017, with conversion to sinus bradycardia in the 40s, but was asymptomatic. She was discharged home and noted no clear change in her symptomatology until three days later when she noted fatigue and increasing dyspnea. She had a fleeting, atypical "electrical" chest discomfort and some persistent jaw discomfort, and presented with respiratory distress. An echocardiogram now shows moderate LV systolic dysfunction with apical hypokinesis, with an EF of 35-40%, consistent with a stress related cardiomyopathy. Her ECG showed sinus rhythm, initially in the 45-60 range, and her flecainide and carvedilol were discontinued. Yesterday, she developed more significant dyspnea and required BiPAP and IV diuresis. She had no recurrent chest discomfort. This morning, she feels considerably better with less dyspnea, although still not yet at her baseline. She denies any orthopnea. She has had a mild nonproductive cough but none otherwise. PHYSICAL EXAM: Appears comfortable, in bed. HR : Has been in the 60s over the last 24 hours. BP 132/68, O2 saturation was 100% on a BiPAP 50%. She has now diuresed around 2500 mL. Lungs: Reduced breath sounds throughout, but without any rales or wheeze. CV: Regular rate and rhythm with distant heart tones but no appreciable murmurs or gallops. JVP appears to be around 6-7 cm. Abdomen: Soft, nondistended, nontender. : Landry catheter in place. Extremities: Warm without edema. LABORATORY: White count has remained normal. Hematocrit 31%. Her INR this morning is 3.3. Potassium this morning is 4.4 with a BUN of 33 and a creatinine of 1.0, down from 46 and 1.2 yesterday. Glucose 176. Troponins remain completely normal. BNP was 869. IMPRESSION: 1. Acute dyspnea with new onset cardiomyopathy. I suspect that her cardiomyopathy is related to a stress related cardiomyopathy given the timing of her cardioversion. While underlying ischemic cardiomyopathy cannot be entirely excluded, this seems unlikely given her normal troponins in the absence of any significant acute ST-segment shifts. Yet, she will likely require an ischemic evaluation at some point, but will defer today and likely tomorrow as she continues to have some evidence of volume overload. I would anticipate potential cardiac catheterization or stress test on Saturday. In the meantime, I would like to see further afterload reduction, and will increase her losartan slightly. Will continue with her current dose of torsemide and follow her electrolytes and renal function closely. 2. History of paroxysmal atrial fibrillation. Given her underlying reduced left ventricular (LV) systolic function, I agree that flecainide is relatively contraindicated. I will discuss further with Dr. Dobbs in regards to further treatment plans for her atrial fibrillation. It is not clear that she has noted any clear improvement in her symptoms following cardioversion, but this remains to be seen. I will continue with low-dose metoprolol for now and her cardiomyopathy. 3. Hypertension. She was markedly hypertensive on admission at 192/84, which may have been a precipitating factor in her dyspnea. 4. Bradycardia. This now appears to have resolved off of flecainide and her carvedilol. Whether this can be restarted or not remains to be seen, but she had tolerated this previously as an outpatient. I would consider changing her metoprolol back to carvedilol if her blood pressure remains elevated. 5. Anticoagulation. She is now currently super therapeutic. Given this, I will hold her warfarin today and will continue to hold it in anticipation of possible invasive evaluation. PLAN: 1. Increase losartan and continue to track electrolytes and renal function. 2. Continue with diuresis. 3. Continue to track electrolytes, renal function, ECG and troponins. 4. Possible cardiac catheterization or stress test on Saturday, depending upon her clinical course. 5. Further discussions with Dr. Dobbs in regards to the best course will for her atrial fibrillation. 6. Withhold warfarin 2 for now, although this will need to be restarted at some point. TIME SPENT: I spent 54 minutes reviewing the patient's medical record, interviewing and examining the patient, and documenting such.
--- NOTE | 2017-02-11 11:33 | PCM.PNMED ---
Subjective Date of Service Feb 11, 2017 Subjective Overnight the patient decompensated in regards to respiratory function with concerns for flash pulmonary edema and was placed on BiPAP. This morning she is still on BiPAP but reports feeling better with less dyspnea but not yet at her normal levels. She has a nonproductive cough but denies any fevers, chills, orthopnea, chest pain, nausea or vomiting. Exam Vital Signs Vital Sign - Last Date Time Temp Pulse Resp B/P Pulse Ox O2 Delivery O2 Flow Rate FiO2 02/11/17 10:40 62 02/11/17 08:45 CPAP/BIPAP 02/11/17 08:45 36.7 18 132/68 100 50 02/10/17 14:37 14.00 Intake and Output 02/10/17 02/10/17 02/11/17 Cumulative From/Thru 15:00 23:00 07:00 02/10/17 06:21 - 02/11/17 06:17 Intake Total 590 ml 300 ml 890 ml Output Total 2200 ml 1200 ml 3400 ml Balance -1610 ml -900 ml -2510 ml Intake Oral 590 ml 300 ml 890 ml Output Urine Total 2200 ml 1200 ml 3400 ml Exam General: Elderly lady lying in bed on oxygen HEENT: NCAT. PEERLA, EOMI. Membranes pink and dry. Neck: Supple with full range of motion. Mild JVP, no thyromegaly. Cardiovascular: Bradycardic with regular rhythm, no murmurs, rubs, or gallops appreciated but heart tones are distant Pulmonary: Rales at the bases bilaterally. Normal respiratory effort with no use of accessory muscles. Abdomen: Soft, nontender, Mildly distended. Bowel tones present. No hepatosplenomegaly. : Landry in place. Extremities: No clubbing, cyanosis, very mild lower extremity edema Skin: Normal temperature, turgor, and texture; no rash, ulcers, or subcutaneous nodules appreciated. Neurological: Cranial nerves 2-12 intact. Muscle strength normal in all extremities. No focal deficits. Psychiatric: Normal mood and affect. Alert and oriented to person, place, and time. IVs and Medications Medications Reviewed: Medications were reviewed in detail Lab and Diagnostics Result Diagram: 02/11/17 0720 02/11/17 0720 X-Rays, CTs and MRIs CXR 02/11 IMPRESSION: Improved bibasilar patchy groundglass opacities since yesterday suggestive of improving pulmonary edema. Please correlate clinically. No new focal consolidation. Dictated by: Matias Rivera M.D. on 02/11/2017 at 8:59 Approved by: Matias Rivera M.D. on 02/11/2017 at 9:01 Cardiac Echo Impressions Echo 02/10 Interpretation Summary Normal sinus rhythm. Moderately dilated LV; there is apical and distal segment severe hypokinesis consistent with stress cardiomyopathy. EF is 35-40%. Moderate MAC with mild-moderate MR. Aortic valve leaflets are normal. No regurgitation or stenosis. Compared to prior study 04/17/2014 LV is more dilated. End diastolic dimension progressed from 5.2 to 6.5 cm. Cardiomyopathy is newly described Assessment & Plan Ms. Christen Everett is a 76 year old lady here following cardioversion 02/07 for persistent A-fib, with malaise, hypoxia, subjective fever and chills likely here for ablation or permanent pacemaker placement. Symptomatic Bradycardia, present on admission. Active. - Patient was d/c'd home 02/07 following cardioversion with HR in the 40's. 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 - Holding home flecainide, carvedilol unless HR >60 bpm. - Remote Telemetry. - ECHO as above -Cardiology involved, appreciate Dr. Sweet's recommendations: Increasing Losartan Trend CMP, EKG, troponins Possible cath vs stress test on Saturday Afib conversation with Dr. Dobbs Hold warfarin at this time Acute dyspnea with new onset acute systolic congestive heart failure due to cardiomyopathy, not present on admission, improving - Pts oxygen requirement increased 02/10, requiring BiPAP to maintain oxygen saturation but is now on 5L nasal cannula - Cardioversion x4 on 02/07, suspect stess-related vs ischemic cardiomyopathy - Troponins initially normal, annika to 0.122 on 02/11 - Continue diuresis with home torsemide - Cardiology recommendations as above Chronic Persistent A-fib, on chronic warfarin, present on admission. Controlled. - Currently controlled with flecainide and carvedilol BID. Will hold per cards recommendations. - Patient was cardioverted 02/07 (4x cardioversions) - Will hold home warfarin for now per cardiology Acute on Chronic hypoxic respiratory failure, present on admission. Active. - Patient on 2L O2 in the ED. Previous history of 2L nocturnal home O2 in ~2014 for 1 year duration that patient d/c'd herself. - Continue pulse ox. Chronic conditions: DMII, present on admission. Active. - Heart healthy diet. - Holding home metformin. HTN - Continue home medications; losartan, torsemide. HLD - Continue home zetia SHAWN - Continue home CPAP at night. Obesity - BMI 37.3 - Heart healthy diet. GERD - continue home omeprazole Depression continue home Paroxetine. Acetaminophen for mild pain when necessary. Bowel regimen Senna and MiraLAX scheduled and PRN. Zofran when necessary for nausea and vomiting. SubQ heparin held for now. SCDs in place. Disposition: Likely here for > 2 midnights. Dependent upon cardiac status and response to diuresis. Will be discharged to home when medically stable. Pain Evaluation: Adequate Pain Control VTE Mechanical Devices: Intermittant Pneumatic CD Resuscitation Status: CPR: Attempt Resuscitation Attending Statement The patient was seen and examined together with Dr. Ngo on 02/11/2017 and I agree with the history, exam and plan as outlined in the note above. . Juarez Ngo DO Feb 11, 2017 11:33 Neal Cerda MD Feb 11, 2017 16:39 SubQ heparin held for now. SCDs in place. Disposition: Likely here for > 2 midnights. Dependent upon cardiac status and response to diuresis. Will be discharged to home when medically stable. Pain Evaluation: Adequate Pain Control VTE Mechanical Devices: Intermittant Pneumatic CD Resuscitation Status: CPR: Attempt Resuscitation Juarez Ngo DO Feb 11, 2017 11:33
--- NOTE | 2017-02-11 15:22 | NUR ---
Oxygen 809 - Spoke to Dr. Early via phone about his care and condition. She gave several telephone orders which were written down and carried out. She wanted to work on weaning her off the Bipap today in preparation for taking her the laboratory machinist soon. Notified Dr. Judd Ngo. 929 - Discussed her care with Dr. Cerda, Dr. Malone, and the rest of the multidisciplinary care team during morning rounds. 942 - She had been switched from the Bipap to about 6L via nasal cannula for breakfast and was tolerating it well with an SpO2 of about 95%. Notified Respiratory Therapist Juaquin Pereira of this and Dr. Early's wishes to wean her off of O2. She remained on the nasal cannula since and is tolerating it well. 1012 - The lab called and notified this nurse of a critical troponin level of 0.122. Notified Dr. Ngo. An EKG had already been ordered and was obtained. Showed it to Dr. Ngo who discussed the results with the other attending Physicians. No new orders at that time. Care continues. Addendum: 02/11/17 at 1836 by JEANETTE SIMMONS RN About 1700 - Notified Dr. Ngo that her blood glucose checks today had been 181 and 196 respectively. He said he would look into ordering some correctional insulin for her. 1830 - Noted no insulin had been ordered for her. Paged Dr. Ngo who came by right away to say thank you for the reminder and to say he would go put the order in. Care continues.
--- NOTE | 2017-02-11 16:17 | NUR ---
Social Work: Initial Assessment D: EMR reviewed. Pt is a 76 y/o female admitted for hypoxia per H&P. SW met with pt at bedside to conduct initial assessment. Pt was alert and oriented x3. SW explained role and wrote number on white board. Pt's insurance is Medicare and [employer]. PCP is Valeriano Rader MD. SW encourage pt to provide DPOA/advanced directive ppw once completed (pt has ppw at home). Pt gave verbal consent to contact spouse, Jimmy Everett ([phone]) discharge planning. Pt does not have LTC insurance or VA benefits. Pt has no hx at a SNF or . Pt is independent with ADLs. Pt does not own or use any DME. Pt does not drives. Pt lives in an with 3 steps to enter in [place] with her spouse. Pt stated her spouse will provide transport home when pt is medically stable. SW does not anticipate any discharge needs but will continue to follow and await MD orders if needs arise. A: Pt who is independent at baseline. P: Pt stated her spouse will provide transport home when pt is medically stable. SW does not anticipate any discharge needs but will continue to follow and await MD orders if needs arise. MICHELLE Leavitt Addendum: 02/11/17 at 1621 by NIALL CHILDS SS Amended: Links added.
--- NOTE | 2017-02-11 16:31 | NUR ---
spiritual care: pt request lengthy conversational visit. pt reflected on strong family ties, parenting and her pleasure in close family relationships. 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 Pt somewhat connected to [facility] but hasn't been able to attend for some time due to sofi decline.
[2017-02-11] MEDS ORDERED: Dextrose 10% 250 ML IV PRN (18:40)
[2017-02-11] MEDS ORDERED: Glucose 40% Oral Gel 15 Gm Tube PO PRN (18:40)
[2017-02-11] MEDS: PARoxetine 20 mg Tablet PO SCH (20:30)
[2017-02-11] MEDS: Insulin LISPRO 300 Unit/3 mL Inj SUBQ SCH (20:37)
[2017-02-12] VITALS (12 sets, daily range): BP systolic 115–139; BP diastolic 53–66; PULSE 51–65; RESP 16–19; O2SAT 91–99
[2017-02-12 03:21] LABS: BASOPHILS % (AUTO) 0.4 % (0-3); EOSINOPHILS % (AUTO) 2.4 % (0-5); MONOCYTES % (AUTO) 9.4 % (4-12); Mean Corpuscular Hemoglobin 31.8 pg (27.0-35.0); Mean Corpuscular Volume 95.4 fL (81-100); Platelet Count 126 bil/L (150-400)
[2017-02-12 03:36] LABS: INR 2.87 ratio
[2017-02-12 03:58] LABS: Magnesium 2.1 mg/dL (1.6-2.6)
[2017-02-12 04:09] LABS: TROPONIN T 0.054 ug/L (0.0-0.011)
--- NOTE | 2017-02-12 04:45 | NUR ---
Respiratory: When awake spo2 maintained on 6 L NC. placed on BIPAP @50% by RT for sleep. Sats in the high 90s- pt tolerating well. sleeping throughout night, care ongoing.
[2017-02-12] MEDS: Insulin LISPRO 300 Unit/3 mL Inj SUBQ SCH ×4 (07:56→21:26)
--- NOTE | 2017-02-12 12:41 | NUR ---
spiritual care:follow up brief visit. pt's in room. she offered updates on medical plan and her coping. she reiterated her good family support.
--- NOTE | 2017-02-12 13:38 | NUR ---
[facility] signed
--- NOTE | 2017-02-12 14:10 | PROG NOTE ---
[address] [address] PROGRESS NOTE PATIENT: HAI LARA : 1940 MR#: [id number] ADMIT: 02/10/2017 JOB ID: [id number] DATE: 02/12/2017 The patient feels significantly improved today and is no longer on BiPAP. In fact, she states that she feels well, better than prior to her cardioversion last week. She continues to deny any angina and her dyspnea has completely resolved. She has had no sense of any palpitations or lightheadedness. PHYSICAL EXAMINATION: HR 50s. BP 123/59. O2 saturation 96% on 5 L of nasal cannula. She had a net diuresis over the last 48 hours of around 3 L. Her weight is still not recorded. Lungs: Clear bilaterally without any rales or wheeze. CV: Regular rate and rhythm with distant heart tones but no appreciable murmurs or gallops. JVP is around 4-5 cm. Carotid pulses are 2+ with a brisk upstroke. Abdomen: Soft, nondistended, nontender. Extremities: Warm without any edema. LABORATORY: Hematocrit is 31% with an INR this morning of 2.8. BUN is 37 with a creatinine of 1.1, up from 33 and 1.0 yesterday. Potassium 3.9 with a magnesium 2.1. Her troponins peaked at 0.122 and subsequently declining. Her ECG shows sinus bradycardia with a first-degree AV block with a FL interval of 220 msec and deeply inverted T-waves across the precordium, consistent with ischemia versus a stress related cardiomyopathy. Her QT has increased. IMPRESSION: 1. New onset cardiomyopathy of uncertain etiology. I continue to believe that this most likely is a stress related cardiomyopathy but an ischemic cardiomyopathy cannot be excluded and I continue to believe that a cardiac catheterization will be helpful to exclude the latter which will help direct therapy in the future. Her INR remains elevated but hopefully will have fallen sufficiently to proceed tomorrow. I have discussed the case with Dr. Taylor and he is willing to do the case tomorrow as long as her INR remains acceptable. Will continue to withhold her warfarin and will continue with her other medications as she has compensated now quite nicely. 2. Paroxysmal atrial fibrillation. She remains in sinus rhythm. I discussed with Dr. Dobbs, who agrees that flecainide should be avoided until her heart function improves and there is no evidence for underlying ischemic heart disease. At this point, we decided to continue off of flecainide and if she has recurrent atrial fibrillation to have him consider an atrial fibrillation ablation procedure. Continue with beta dickson in the meantime and optimize electrolytes. She should restart her warfarin once her invasive procedures have been completed. 3. Hypertension. Now much improved. 4. Bradycardia. She continues to have mild sinus bradycardia but is asymptomatic. I would continue with her current dose of metoprolol. At this point, there is no clear indication for pacemaker. PLAN: 1. Continue current medications. 2. Continue to track pro times and once her INR is acceptable proceed with cardiac catheterization. If this shows no obstructive coronary disease, then I suspect that she can be discharged home on her current medications with the reinstitution of warfarin. 3. Continue to track electrolytes and renal function.
[2017-02-12] MEDS ORDERED: Dextrose 10% 250 ML IV PRN (15:05)
[2017-02-12] MEDS ORDERED: Glucose 40% Oral Gel 15 Gm Tube PO PRN (15:05)
--- NOTE | 2017-02-12 15:10 | PCM.PNMED ---
Subjective Date of Service Feb 12, 2017 Subjective Overnight there were no acute events. The patient feels significantly better today. She is off BiPAP and denies chest pain, shortness of breath, palpitations, lightheadedness or dizziness. Exam Vital Signs Vital Sign - Last Date Time Temp Pulse Resp B/P Pulse Ox O2 Delivery O2 Flow Rate FiO2 02/12/17 13:35 36.7 51 16 120/66 94 Nasal Cannula 1.00 02/12/17 04:15 50 Intake and Output 02/11/17 02/11/17 02/12/17 Cumulative From/Thru 15:00 23:00 07:00 02/10/17 06:21 - 02/12/17 05:57 Intake Total 520 ml 600 ml 2010 ml Output Total 950 ml 500 ml 4850 ml Balance -430 ml 100 ml -2840 ml Intake Oral 520 ml 600 ml 2010 ml Output Urine Total 950 ml 500 ml 4850 ml # Bowel Movements 1 1 Exam General: Elderly lady sitting upright eating breakfast HEENT: NCAT. PEERLA, EOMI. Membranes pink and dry. Neck: Supple with full range of motion. Mild JVP, no thyromegaly. Cardiovascular: Bradycardic with regular rhythm, no murmurs, rubs, or gallops appreciated but heart tones are distant Pulmonary: Slight crackles bibasilarly but much improved from yesterday. Normal respiratory effort with no use of accessory muscles. Abdomen: Soft, nontender, Mildly distended. Bowel tones present. No hepatosplenomegaly. Extremities: No clubbing, cyanosis, very mild lower extremity edema Skin: Normal temperature, turgor, and texture; no rash, ulcers, or subcutaneous nodules appreciated. Neurological: A&Ox3. Cranial nerves 2-12 intact. Muscle strength normal in all extremities. No focal deficits. Psychiatric: Normal mood and affect. IVs and Medications Medications Reviewed: Medications were reviewed in detail Lab and Diagnostics Result Diagram: 02/12/17 0250 02/12/17 0250 X-Rays, CTs and MRIs CXR 02/11 IMPRESSION: Improved bibasilar patchy groundglass opacities since yesterday suggestive of improving pulmonary edema. Please correlate clinically. No new focal consolidation. Dictated by: Matias Rivera M.D. on 02/11/2017 at 8:59 Approved by: Matias Rivera M.D. on 02/11/2017 at 9:01 Cardiac Echo Impressions Echo 02/10 Interpretation Summary Normal sinus rhythm. Moderately dilated LV; there is apical and distal segment severe hypokinesis consistent with stress cardiomyopathy. EF is 35-40%. Moderate MAC with mild-moderate MR. Aortic valve leaflets are normal. No regurgitation or stenosis. Compared to prior study 04/17/2014 LV is more dilated. End diastolic dimension progressed from 5.2 to 6.5 cm. Cardiomyopathy is newly described Assessment & Plan Ms. Christen Everett is a 76 year old lady here following cardioversion 02/07 for persistent A-fib, with malaise, hypoxia, subjective fever and chills likely here for evaluation for ablation or permanent pacemaker placement. Symptomatic Bradycardia, present on admission. Active. - Patient was d/c'd home 02/07 following cardioversion with HR in the 40's. 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 - Holding home flecainide, carvedilol unless HR >60 bpm. - Remote Telemetry. - ECHO as above -Cardiology involved, appreciate Dr. Sweet's recommendations: Increased Losartan Trend CMP, EKG, troponins Cardiac cath scheduled with Dr. Swann for 02/12 depending on INR Continue holding flecainide, if she has recurrent atrial fibrillation we can condier ablation Hold warfarin at this time, INR 2.7 Acute dyspnea with new onset acute systolic congestive heart failure due to cardiomyopathy, not present on admission, improving - Pts oxygen requirement increased 02/10, requiring BiPAP to maintain oxygen saturation but is now down to 1L nasal cannula - Cardioversion x4 on 02/07, suspect stess-related vs ischemic cardiomyopathy - Troponins initially normal, annika to 0.122 on 02/11, fell 0.54 on 02/12 - Continue diuresis with home torsemide - Cardiology recommendations as above Chronic Persistent A-fib, on chronic warfarin, present on admission. Controlled. - Currently controlled with flecainide and carvedilol BID. Will hold per cards recommendations. - Patient was cardioverted 02/07 (4x cardioversions) - Will hold home warfarin for now per cardiology - Consider ablation with Dr. Dobbs if a-fib recurs now that flecanide is held Acute on Chronic hypoxic respiratory failure, present on admission. Improving. - Patient on 2L O2 in the ED. Previous history of 2L nocturnal home O2 in ~2014 for 1 year duration that patient d/c'd herself. - Continue pulse ox. - Now down to 1L nasal cannula Chronic conditions: Diabetes Mellitus type II, present on admission. Active. - Heart healthy diet. - Holding home metformin. Hypertension - Continue home medications; losartan, torsemide. HLD - Continue home zetia SHAWN - Continue home CPAP at night. Obesity - BMI 37.3 - Heart healthy diet. GERD - continue home omeprazole Depression continue home Paroxetine. Acetaminophen for mild pain, headache, or fever when necessary. Bowel regimen Senna and MiraLAX scheduled as needed. Zofran when necessary for nausea and vomiting. SubQ heparin held for now. SCDs in place. Disposition: Patient likely here 1-2 more days dependent on her INR, cardiac procedure, and continued resposne to diuresis. She will be discharged home when medically stable. Pain Evaluation: Adequate Pain Control VTE Mechanical Devices: Intermittant Pneumatic CD Resuscitation Status: CPR: Attempt Resuscitation Attending Statement The patient was seen and examined together with Dr. Ngo on 02/12/2017 and I agree with the history, exam and plan as outlined in the note above. . Juarez Ngo DO Feb 12, 2017 15:10 Neal Cerda MD Feb 12, 2017 19:42
--- NOTE | 2017-02-12 15:57 | NUR ---
Multidisciplinary Communication 09 - Discussed her care with Dr. Cerda, Dr. Malone, and the rest of the multidisciplinary care team during morning rounds. Informed them that he was down to 5L of O2. 1036 - Spoke with Dr. Ngo and asked if her Landry catheter could be discontinued and if her telemetry could be discontinued for a shower. He said yes to both requests. 1200 - Her Landry was discontinued intact. Tolerated it well. Addendum: 02/12/17 at 1840 by JEANETTE SIMMONS RN She has urinated at least once since the Landry was discontinued and is comfortable. Care continues.
[2017-02-12] MEDS: PARoxetine 20 mg Tablet PO SCH (20:41)
[2017-02-13] VITALS (19 sets, daily range): BP systolic 125–146; BP diastolic 46–77; PULSE 49–61; RESP 12–20; O2SAT 92–100
[2017-02-13 03:37] LABS: Mean Corpuscular Hemoglobin 31.4 pg (27.0-35.0); Mean Corpuscular Volume 94.1 fL (81-100)
[2017-02-13 03:52] LABS: Magnesium 2.2 mg/dL (1.6-2.6)
[2017-02-13 04:01] LABS: INR 1.85 ratio
--- NOTE | 2017-02-13 04:49 | NUR ---
Respiratory/Cardiac/NPO/ Maintains 95% on bipap with 50% fiO2 or 90-95% 1L NC. Denies SOB/dyspnea. SB with 1st degree block 50-70's. NPO after midnight for possible cath today. BG 186 and 233 tonight. Slept quietly. Voiding appropriately after [place] DC yesterday.
[2017-02-13] MEDS: Insulin LISPRO 300 Unit/3 mL Inj SUBQ SCH ×4 (08:00→20:27)
--- NOTE | 2017-02-13 10:18 | NUR ---
NUTRITION ASSESSMENT: ASSESS: Pt is a 76yo F admitted for hypoxia. Requiring BIPAP on and off. 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 Prior to NPO status, she was on a diabetic/heart healthy diet with fair PO intake of 25-50% of meals. PMHX: Afib, DM, HLD, HTN LABS: Reviewed. Bun 48, web development consultant 1.43, Glu 155, Alb 3.5 MEDS: Reviewed. GI: BMx1 02/11 SKIN: no major issues CURRENT WTS: 94.3kg, BMI 35.7kg/m2, IBW: 54.5kg, admit wt: 96.7kg DIET: NPO for cath EST. NEEDS: BMI Kcals: 1885-2075kcal/day (20-22kcal/kg) Pro: 65-80g/day (1.2-1.5g/kg IBW) NUTRITION DIAGNOSIS: 1.) Inadequate oral intake related to decreased ability to consume sufficient energy as evidenced by current NPO status NUTRITION INTERVENTION: 1.) Recommend advance diet when medically appropriate. 2.) Will monitor PO intake once diet advanced MONITOR / EVAL: NPO, diet advc, PO, wt, GI, labs. Will continue to monitor per moderate nutrition risk guidelines
--- NOTE | 2017-02-13 12:59 | PCM.PNMED ---
Subjective Date of Service Feb 13, 2017 Subjective Overnight there were no acute events. This morning, Mrs. Everett reports feeling at her baseline but does say she is slightly anxious about the cardiac catheterization procedure scheduled today. She denies any fever/chills, chest pain, shortness of breath, palpitations. She expresses the desire to eat immediately after the procedure if possible. Exam Vital Signs Vital Sign - Last Date Time Temp Pulse Resp B/P Pulse Ox O2 Delivery O2 Flow Rate FiO2 02/13/17 09:02 36.6 51 16 129/54 92 Nasal Cannula 1.00 02/13/17 04:33 50 Intake and Output 02/12/17 02/12/17 02/13/17 Cumulative From/Thru 15:00 23:00 07:00 02/10/17 06:21 - 02/13/17 06:13 Intake Total 1200 ml 350 ml 3560 ml Output Total 1200 ml 600 ml 6650 ml Balance 0 ml -250 ml -3090 ml Intake Oral 1200 ml 350 ml 3560 ml Output Urine Total 1200 ml 600 ml 6650 ml # Voids 1 1 # Bowel Movements 1 Exam General: Elderly lady lying in her bed in NAD HEENT: NCAT. PEERLA, EOMI. Membranes pink and dry. Neck: Supple with full range of motion. Mild JVP, no thyromegaly. Cardiovascular: Bradycardic with regular rhythm, no murmurs/rubs/gallops appreciated but heart tones are distant Pulmonary: Slight crackles bibasilarly. Normal respiratory effort with no use of accessory muscles. Abdomen: Soft, nontender, Mildly distended. Bowel tones present. No hepatosplenomegaly. Extremities: No clubbing, cyanosis, very mild lower extremity edema Skin: Normal temperature, turgor, and texture; no rash, ulcers Neurological: A&Ox3. Cranial nerves 2-12 intact. Muscle strength normal in all extremities. No focal deficits. Psychiatric: Normal mood and affect. IVs and Medications Medications Reviewed: Medications were reviewed in detail Lab and Diagnostics Result Diagram: 02/13/17 0300 02/13/17 0300 X-Rays, CTs and MRIs CXR 02/11 IMPRESSION: Improved bibasilar patchy groundglass opacities since yesterday suggestive of improving pulmonary edema. Please correlate clinically. No new focal consolidation. Dictated by: Matias Rivera M.D. on 02/11/2017 at 8:59 Approved by: Matias Rivera M.D. on 02/11/2017 at 9:01 Cardiac Echo Impressions Echo 02/10 Interpretation Summary Normal sinus rhythm. Moderately dilated LV; there is apical and distal segment severe hypokinesis consistent with stress cardiomyopathy. EF is 35-40%. Moderate MAC with mild-moderate MR. Aortic valve leaflets are normal. No regurgitation or stenosis. Compared to prior study 04/17/2014 LV is more dilated. End diastolic dimension progressed from 5.2 to 6.5 cm. Cardiomyopathy is newly described Assessment & Plan Ms. Christen Everett is a 76 year old lady here following cardioversion 02/07 for persistent A-fib, with malaise, hypoxia, subjective fever and chills likely here for evaluation for ablation or permanent pacemaker placement. Symptomatic Bradycardia, present on admission. Active. - Patient was d/c'd home 02/07 following cardioversion with HR in the 40's. 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 - Holding home flecainide, carvedilol unless HR >60 bpm. - Remote Telemetry. - ECHO as above -Cardiology involved, appreciate Dr. Sweet's recommendations: Increased Losartan Trend CMP, EKG, troponins Cardiac cath scheduled with Dr. Swann for 02/13 at 1300 Continue holding flecainide, if she has recurrent atrial fibrillation we can consider ablation Hold warfarin for procedure, INR 1.85 02/13 Acute dyspnea with new onset acute systolic congestive heart failure due to cardiomyopathy, not present on admission, improving - Pts oxygen requirement increased 02/10, requiring BiPAP to maintain oxygen saturation but is now down to 1L nasal cannula - Cardioversion x4 on 02/07, suspect stess-related vs ischemic cardiomyopathy - Troponins initially normal, annika to 0.122 on 02/11, fell 0.54 on 02/12 - Continue diuresis with home torsemide - Cardiology recommendations as above Chronic Persistent A-fib, on chronic warfarin, present on admission. Controlled. - Currently controlled with flecainide and carvedilol BID. Will hold per cards recommendations. - Patient was cardioverted 02/07 (4x cardioversions) - Will hold home warfarin for now per cardiology - Consider ablation with Dr. Dobbs if a-fib recurs now that flecanide is held Acute on Chronic hypoxic respiratory failure, present on admission. Improving. - Patient on 2L O2 in the ED. Previous history of 2L nocturnal home O2 in ~2014 for 1 year duration that patient d/c'd herself. - Continue pulse ox. - O2 requirements 1-2L nasal cannula Chronic conditions: Diabetes Mellitus type II, present on admission. Active. - Heart healthy diet. - Holding home metformin. - Medium correctional scale started Hypertension - Continue home medications; losartan, torsemide. HLD - Continue home zetia SHAWN - Continue home CPAP at night Obesity - BMI 37.3 - Heart healthy diet. GERD - continue home omeprazole Depression continue home Paroxetine. Acetaminophen for mild pain, headache, or fever when necessary. Bowel regimen Senna and MiraLAX scheduled as needed. Zofran when necessary for nausea and vomiting. SubQ heparin held for now. SCDs in place. Disposition: Patient likely here 1-2 more days dependent on her INR, cardiac procedure, and continued resposne to diuresis. She will be discharged home when medically stable. Pain Evaluation: Adequate Pain Control VTE Mechanical Devices: Intermittant Pneumatic CD Resuscitation Status: CPR: Attempt Resuscitation Attending Statement The patient was seen and examined together with Dr. Ngo on 02/13/2017 and I agree with the history, exam and plan as outlined in the note above. . Juarez Ngo DO Feb 13, 2017 09:35 Neal Cerda MD Feb 14, 2017 17:34
[2017-02-13] MEDS ORDERED: Heparin 10,000 Unit/1,000 mL NS Premix IV ONE (14:12)
[2017-02-13] MEDS ORDERED: Heparin 1,000 Units/500 mL NS Premix IV ONE (14:12)
[2017-02-13] MEDS ORDERED: Nitroglycerin 50,000 mcg/250 mL D5W Premix IV ONE (14:12)
[2017-02-13] MEDS ORDERED: fentaNYL-PF 50 mCg/mL 2 mL Inj ONE (14:29)
--- NOTE | 2017-02-13 15:32 | NUR ---
Catheter Lab 0708 - Called Kenny GARCIA from IV therapy requesting that a 2nd IV be placed for her upcoming laboratory courier procedure. Was told in report she was a difficult IV start. She came and placed another IV. 08 - Informed Dr. Ngo that the Sales Agent [employer] had informed this nurse that she was starting to have some inverted T waves since last night. He acknowledged this information. Later, upon speaking to the veterinary technology instructor it was discovered she'd been having inverted T waves since 02/11/17. 08 - Called the laboratory courier and spoke to Maverick who said that her laboratory courier procedure was schedule about 1300. He said it was okay for her to receive her AM medications including her Beta Blockers. 09 - Discussed her care with Dr. Cerda, Dr. Malone, and the rest of the multidisciplinary care team during morning rounds. Informed them of her inverted T waves. This information was acknowledged. No new orders at that time. 1101 - Paged Dr. Taylor as there were concerns with her going to the laboratory courier with an INR of 1.85. He called back and said that as long as her INR was below 2 he was comfortable with performing the procedure. COLE and the laboratory courier were notified. 1354 - The laboratory courier called saying they would be there within about 30 minutes. 1415 - She left for the laboratory courier and took her cell phone with her. Care continues. Addendum: 02/13/17 at 1824 by JEANETTE SIMMONS RN 0935 - Received report from [facility] nurse who said she'd be returning to [facility] in about 30 minutes. 1715 - She arrived back to the floor. Right groin dressing clean, dry, and intact. No c/o pain and no hematoma noted. Placed back on telemetry. Bed rest and IV fluids until 1914 per MD orders. Care continues.
--- NOTE | 2017-02-13 15:39 | CS94 ---
[address] [address] DIAGNOSTIC CARDIAC CATHETERIZATION PATIENT: HAI LARA : 1940 MR#: [id number] ADMIT: 02/10/2017 JOB ID: [id number] SERVICE DATE: 02/13/2017 PATIENT PROFILE: The patient is a 76-year-old lady with history of paroxysmal atrial fibrillation, on warfarin, flecainide and carvedilol, diabetes, hypertension, hyperlipidemia, and obstructive sleep apnea on CPAP. She presented with dyspnea and was found to have new onset cardiomyopathy. PROCEDURES: 1. Retrograde left heart catheterization. 2. Selective coronary angiography. 3. Left ventricular angiogram. VASCULAR CLOSURE DEVICE: Perclose. COMPLICATIONS: None. METHOD: Retrograde left heart catheterization was performed from the right groin under 1% lidocaine local anesthesia using a 6-Malagasy sheath. Selective coronary angiogram was performed in multiple projections, including cranial and caudal angulations with hand injected contrast via JL-4 and 3DRC catheters. A 6-Malagasy angulated pigtail catheter was advanced to the left ventricle and left ventricular angiogram was performed in the 30 degree MURDOCK view by injecting contrast at the rate of 12 cc/second for 3 seconds. This catheter was withdrawn. Right femoral angiogram was performed. Following sheath removal, hemostasis was achieved by using a Perclose device. The patient tolerated the procedure well. He was transferred to [facility] in good condition. TOTAL CONTRAST USED: 70 cc. FLUOROSCOPY TIME: 4.9 minutes. RESULTS: 1. Coronary coronary angiogram: a. Left main coronary artery is normal. b. The left anterior descending artery is transapical and has scattered atherosclerotic plaque of 30%-60% stenosis in the proximal and mid portions. The major diagonal branch has 80% stenosis at its origin. There is minor calcification in the left anterior descending artery. c. The circumflex artery has 60% stenosis in the proximal portion and 50% stenosis in the distal portion. d. The dominant right coronary artery has severe 90% stenosis in the proximal portion and becomes totally occluded in the mid portion. The distal right coronary artery is filling retrogradely from left to right collaterals. 2. Left ventricular angiogram demonstrates moderately depressed left ventricular systolic function (visually estimated ejection fraction 40%-45%). The middle third of the anterolateral wall is akinetic. The middle third of the inferior wall is severely hypokinetic. The remaining segments contract normally. 3. There is no gradient across the aortic valve on catheter withdrawal. 4. Aortic pressure is 144/51 mmHg. Left ventricular pressure is 145/4 mmHg. 5. Left ventricular end-diastolic pressure is 21 mmHg. CONCLUSIONS: 1. Severe stenosis of the major diagonal branch. 2. 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 3. LVEF 40%-45%. 4. LVEDP is 21 mmHg. MTDD
--- NOTE | 2017-02-13 15:57 | NUR ---
report called to Yulisa becker, will ambulate patient and then transfer.He remains in sinus rhythm.
--- NOTE | 2017-02-13 16:53 | NUR ---
Recovery started in [facility] post heart cath today by Dr Swann. Right femoral access site closed with a perclose closure device. Puncture site is soft and non-tender. Taking in PO liquids without difficulty. NSB rates in the 40's. No chest pain. O2 Saturation on 2 liters is 95%. Report given to RN for room 2003.
[2017-02-13] MEDS ORDERED: 0.9% Sodium Chloride 1,000 ML IV PRN (17:46)
[2017-02-13] MEDS ORDERED: 0.9% Sodium Chloride 250 ML IV PRN (17:46)
[2017-02-13] MEDS ORDERED: Ondansetron 2 mg/mL 2 mL Inj IVPUSH PRN (17:50)
[2017-02-13] MEDS ORDERED: Atropine 1 mg/10 mL (Code) Syringe IVPUSH PRN (17:50)
--- NOTE | 2017-02-13 17:59 | PROG NOTE ---
[address] [address] PROGRESS NOTE PATIENT: HAI LARA : 1940 MR#: [id number] ADMIT: 02/10/2017 JOB ID: [id number] DATE: 02/13/2017 CARDIOLOGY PROGRESS NOTE: SUBJECTIVE: The patient continues to feel well, denying any dyspnea or chest discomfort. She has maintained sinus rhythm. She underwent cardiac catheterization today by Dr. Taylor that showed a completely occluded right coronary artery with collateralization from the left circumflex which had a 30% to 40% proximal stenosis. The LAD has mild diffuse disease but no high-grade stenosis. There is a moderate sized diagonal that has a 80% to 90% ostial lesion. The terminal portions of the RCA are visualized but the targets appear to be relatively limited. PHYSICAL EXAMINATION: She appears quite comfortable following the procedure. HR 50s. BP 142/54. O2 saturation 95% on 3 L. She is in a fairly neutral fluid balance. LABORATORY: Hematocrit 32% and stable. Potassium is 4.4, with a BUN of 48 and a creatinine of 1.4. IMPRESSION: 1. Stress related cardiomyopathy. While she has significant ischemic heart disease, the distribution of such does not explain her wall motion abnormality and I continue to believe that she most likely has a stress related cardiomyopathy and that the coronary artery disease is an incidental finding. She appears to be fairly well compensated and I would continue on her current medications, with followup with my physician's automotive parts counter assistant in several weeks, with a recheck of her electrolytes and renal function. Following this, a cardiac MR will be obtained to evaluate for viability in the inferior wall. If she does appear to have significant viability, then revascularization of the inferior wall may be reasonable. She has not had any angina, but her exertional dyspnea could be an anginal equivalent. Her targets are not great, but I suspect that bypass grafting could be pursued, but would take some contemplation of whether the benefit would be worth the risk. 2. Coronary artery disease. As above. She has had no anginal discomfort. I would increase her rosuvastatin to 10 mg daily in an effort to optimize her lipid profile and continue with secondary prevention. 3. Paroxysmal atrial fibrillation. Flecainide is clearly contraindicated with her known underlying ischemic heart disease. Will continue with low-dose beta blockade as much as she can tolerate and if she has recurrent atrial fibrillation then followup with Dr. Dobbs would be appropriate for consideration of an atrial fibrillation ablation. 4. Sleep apnea. She has been noted to have some apneic spells. She should continue to use her CPAP. RECOMMENDATIONS: 1. I suspect the patient can be discharged tomorrow if her renal function and electrolytes remain stable. I would continue with her current medications, with exception of increasing her simvastatin to 10 mg daily. 2. She is scheduled to follow up with Stef Mann PA-C, on February 21, 2017. Her rhythm can be documented and her heart failure medications adjusted. A cardiac MRI can then be ordered. 3. The patient can follow up with me in several months as already scheduled. 4. At this point, I will not plan on seeing her back in followup. Please call if you have any further questions or concerns.
[2017-02-13] MEDS: PARoxetine 20 mg Tablet PO SCH (20:25)
[2017-02-14] VITALS (7 sets, daily range): BP systolic 127–139; BP diastolic 60–62; PULSE 45–67; RESP 16–22; O2SAT 92–99
[2017-02-14 03:59] LABS: BASOPHILS % (AUTO) 0.6 % (0-3); EOSINOPHILS % (AUTO) 8.6 % (0-5); Mean Corpuscular Hemoglobin 31.6 pg (27.0-35.0); Mean Corpuscular Volume 95.7 fL (81-100); Platelet Count 154 bil/L (150-400)
[2017-02-14 04:13] LABS: INR 1.59 ratio
--- NOTE | 2017-02-14 05:17 | NUR ---
Groin site/resp R groin site dressed with opsite, minimal serous drainage noted. Site soft, non-tender, no bruising noted. Maintains 93% on 1L NC, bipap worn while sleeping. No caffeine for possible stress test today. Care continues.
[2017-02-14] MEDS: Insulin LISPRO 300 Unit/3 mL Inj SUBQ SCH (09:24)
[2017-02-14] MEDS ORDERED: ROSU5TAB PO (11:34)
--- NOTE | 2017-02-14 11:35 | PCM.DIMED ---
Juarez Ngo DO 02/14/17 1128: Discharge Instructions Date of Service Feb 14, 2017 Dates of Hospitalization Feb 10, 2017 at 08:45 Discharge Diagnosis Discharge Diagnosis Symptomatic Bradycardia Acute dyspnea with new onset acute systolic congestive heart failure due to cardiomyopathy Chronic Persistent A-fib, on chronic warfarin Acute on Chronic hypoxic respiratory failure Diabetes Mellitus type II Hypertension HLD SHAWN Obesity GERD Depression Medication Instructions Additional med instructions Restart your warfarin with close follow up in the Coumadin clinic to ensure you get back to therapeutic levels. Your Simvastatin has been increased to 10mg daily. You have an appointment with Stef Mann PA-C, on 02/21. Wear your home oxygen as prescribed to prevent shortness of breath. We will coordinate a night oxygenation study to see if your CPAP is sufficient. I have referrals in to the CHF clinic and they will contact you regarding ongoing evaluation. Follow up with Dr. Rader in 1-2 weeks to go over your hospital admission. Diet Discharge Diet: Heart Healthy, Diabetic Activity Discharge Activity: Limited until seen by PCP Call your provider Call your provider for: Shortness of breath, Bleeding, Chest pain Patient Instructions Follow-up Provider: Valeriano Rader MD Follow-up with PCP in: 1 week (hospital follow up) Provider: Neal Meier MD Follow-up in: 4 weeks (already has appointment scheduled) Neal Cerda MD 02/14/17 1735: Discharge Instructions Attending's Statement The patient was seen and examined together with Dr. Ngo on 02/14/2017 and I agree with the history, exam and plan as outlined in the note above. . Juarez Ngo DO Feb 14, 2017 11:28 Neal Cerda MD Feb 14, 2017 17:35
--- NOTE | 2017-02-14 11:56 | PCM.PHAPRO ---
Progress Date of Service: Feb 14, 2017 Warfarin dosing Rec'd orders to restart warfarin: Date -Feb 11-Feb 12-Feb 13-Feb 14-Feb INR 3.15 3.27 2.87 1.85 1.59 INR change 0.12 -0.4 -1.02 -0.26 Warf Dose 2 MG HOLD HOLD HOLD 2.5MG Cely Jimenez PharmD Feb 14, 2017 11:56
--- NOTE | 2017-02-14 14:45 | NUR ---
Discharge Pt discharged to home with transportation provided by her granddaughter. Pt's IV's dc'd intact, telemetry removed and tech notified. Pt's discharge instructions, medications and follow up appointments were reviewed. All questions were answered and pt voiced understanding. Pt's belongings were gathered and transported with pt. Pt was escorted to her granddaughters vehicle by FAITH.
--- NOTE | 2017-02-14 16:40 | PCM.DC.MED ---
Discharge Summary Date of Service Feb 14, 2017 Dates of Hospitalization Date of Hospital Admission Feb 10, 2017 at 08:45 Date of Discharge: Feb 14, 2017 Providers: Admitting Physician: Neal Cerda MD Primary Care Physician: Valeriano Rader MD Attending Physician: Neal Cerda MD Diagnosis at Time of Discharge Diagnosis at Time of Discharge Symptomatic Bradycardia Acute dyspnea with new onset acute systolic congestive heart failure due to cardiomyopathy Chronic Persistent A-fib, on chronic warfarin Acute on Chronic hypoxic respiratory failure Diabetes Mellitus type II Hypertension HLD SHAWN Obesity GERD Depression Consultations Dr. Meier and Dr. Early, Cardiology Procedures XRay, CTs & MRIs CXR 02/11 IMPRESSION: Improved bibasilar patchy groundglass opacities since yesterday suggestive of improving pulmonary edema. Please correlate clinically. No new focal consolidation. Dictated by: Matias Rivera M.D. on 02/11/2017 at 8:59 Approved by: Matias Rivera M.D. on 02/11/2017 at 9:01 Cardiac Echo Impression Echo 02/10 Interpretation Summary Normal sinus rhythm. Moderately dilated LV; there is apical and distal segment severe hypokinesis consistent with stress cardiomyopathy. EF is 35-40%. Moderate MAC with mild-moderate MR. Aortic valve leaflets are normal. No regurgitation or stenosis. Compared to prior study 04/17/2014 LV is more dilated. End diastolic dimension progressed from 5.2 to 6.5 cm. Cardiomyopathy is newly described Invasive Procedures Cardiac Cath 02/13 CONCLUSIONS: 1. Severe stenosis of the major diagonal branch. 2. 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 3. LVEF 40%-45%. 4. LVEDP is 21 mmHg. Brief History Patient is a 76 yr old female with a long history of paroxysmal atrial fibrillation on (warfarin, flecainide and carvedilol); DM, hypertension, hyperlipidemia, obstructive sleep apnea on CPAP, and chronic hypoxemic respiratory failure (on supplemental Oxygen but non-compliant). Patient presented here for chief complaint of malaise, fatigue and SOB that started after her DC cardioversion on 02/07/17. Operative reports by Dr. Meier show successful cardioversion of Afib to sinus bradycardia with HR of 40 bpm. However, as patient was asymptomatic, she was sent home. She had been taking flecainide 100 mg twice daily since discharge but held off on Carvedilol due to bradycardia. Her HR at home was still low. On 02/09/2017 she took carvedilol 3.125 mg and her malaise got progressively worse as if she got hit by a truck, =. She then felt increasing SOB, dyspnea, chills, nausea, headaches and subjective fever. She reported that she was feeling electrical pulses shooting from her sternum on the left side to her left jaw line. She denied lightneadedness, overt chest pain. The patient was admitted in stable condition as detailed above however once she was admitted to the floor she began to decompensate with increased difficulty breathing and increasing oxygen requirements. A chest x-ray demonstrated diffuse infiltrates and there was concern for flash pulmonary edema prompting administration of Lasix and subsequent BiPAP application. The patient's respiratory distress was essentially resolved with these 2 interventions and improved greatly throughout that day. An echocardiogram was performed as above, describing a new cardiomyopathy. To properly evaluate this new development, she was scheduled for the cardiac catheterization lab when her INR came down from her super-therapeutic level. She was diuresed daily and her breathing improved. Her catheterization, described above, yielded no clear answer and Dr. Meier has her scheduled for a cardiac MRI for further evaluation. She will see Dr. Meier in a 2-3 months at their scheduled appointment. Prior to discharge, Respiratory Therapy evaluated her need for home oxygen as she weaned herself off it some time ago. She qualified and was counseled to use the oxygen as prescribed at least until her cardiac workup is complete. Hospital Course Ms. Christen Everett is a 76 year old lady here following cardioversion 02/07 for persistent A-fib, with malaise, hypoxia, subjective fever and chills likely here for evaluation for ablation or permanent pacemaker placement. Symptomatic Bradycardia, present on admission. Resolved. - Patient was discharged home 02/07 following cardioversion with HR in the 40's. - ECHO results above - Discontinue flecainide. - Continue Losartan, Warfarin - Increase Simvastatin to 10mg daily - Cardiac cath on 02/13 did not reveal cause of cardiomyopathy, scheduled for cardiac MRI - Follow up scheduled with Cardiology for 02/21 for rhythm evaluation and medication adjustment Acute dyspnea with new onset acute systolic congestive heart failure due to cardiomyopathy, not present on admission. Stable. - Patient required oxygen throughout entire admission - Continue home torsemide - CHF clinic referral, will follow up as outpatient Chronic Persistent A-fib, on chronic warfarin, present on admission. Controlled. - Stop Flecainide - Continue Metoprolol 25mg twice daily - Patient was cardioverted 02/07 (4x cardioversions) - Restart home warfarin with Coumadin clinic follow up - Consider ablation with Dr. Dobbs if a-fib recurs Acute on Chronic hypoxic respiratory failure, present on admission. Improving. - Patient on 2L O2 in the ED. Previous history of 2L nocturnal home O2 in ~2014 for 1 year duration that patient discontinued herself. - O2 requirements 1-2L nasal cannula throughout admission - Qualified for home oxygen - Counseled patient on using home oxygen as prescribed to prevent further cardiac strain Diabetes Mellitus type II, present on admission. Active. - Heart healthy diet. - Continue home Metformin Hypertension - Continue home Losartan, Torsemide Hyperlipidemia - Continue home zetia SHAWN - Continue home CPAP at night Obesity - BMI 37.3 - Heart healthy diet. GERD - continue home omeprazole Depression - continue home Paroxetine. Disposition: Patient was discharged in stable and improved condition. She expressed understanding of her new medication regimen and the need for further workup with Cardiology and the CHF clinic. She also understood under what conditions she was to return to the hospital and how to use her home oxygen. Exam Vital Signs (Last) Date Time Temp Pulse Resp B/P Pulse Ox O2 Delivery O2 Flow Rate FiO2 02/14/17 12:30 57 Nasal Cannula 2.00 67 02/14/17 09:02 36.7 16 139/62 92 02/14/17 04:12 30 Exam General: Elderly lady lying in her bed in NAD HEENT: NCAT. PEERLA, EOMI. Membranes pink and dry. Neck: Supple with full range of motion. No JVP, no thyromegaly. Cardiovascular: Bradycardic with regular rhythm, no murmurs/rubs/gallops appreciated but heart tones are distant Pulmonary: Slight crackles bibasilarly. Normal respiratory effort with no use of accessory muscles. Abdomen: Soft, nontender, Mildly distended. Bowel tones present. No hepatosplenomegaly. Extremities: No clubbing, cyanosis, trace LE edema bilaterally Skin: Normal temperature, turgor, and texture; no rash, ulcers Neurological: A&Ox3. Cranial nerves 2-12 intact. Muscle strength normal in all extremities. No focal deficits. Psychiatric: Normal mood and affect. Test 02/10/17 06:35 7/2/17 14:20 02/12/17 02:50 02/13/17 03:00 Pro-B-Type Natriuretic Peptide 869.2pg/mL (0-738) Hold Forrest Top Tube Received (Received) Urine Color Straw (YELLOW) Urine Appearance Clear (CLEAR,HAZY) Urine pH 5.0 (5.0-8.0) Urine Specific Fisher 1.025 (1.003-1.035) Urine Protein Negativemg/dL (NEG,TRACE) Urine Glucose (UA) Negativemg/dL (NEGATIVE) Urine Ketones Negativemg/dL (NEGATIVE) Urine Occult Blood Trace (NEGATIVE) Urine Nitrite Negative (NEGATIVE) Urine Bilirubin Negative (NEGATIVE) Urine Urobilinogen Normalmg/dL (NORMAL) Urine Leukocyte Esterase Negative (NEGATIVE) Urine RBC 0-2/hpf (0-2) Urine WBC 0-5/hpf (0-5) Urine Epithelial Cells Few/hpf (NONE-MOD) Urine Crystals Amorphous urates (NONE Urine Bacteria Few/hpf (NONE-FEW) Urine Hyaline Casts None/lpf (NONE) Urine Granular Casts None seen (NONE SEEN) Urine Waxy Casts None seen (NONE SEEN) Urine Red Blood Cell Casts None seen (NONE SEEN) Urine White Blood Cell Casts None seen (NONE SEEN) Urine Mucus None seen (None Seen) Urine Trichomonas None seen (NONE SEEN) Urine Yeast None (NONE SEEN) Urinalysis Comment None Urine Culture Reflexed Not indicated Troponin T 0.054ug/L (0.0-0.011) Magnesium Level 2.2mg/dL (1.6-2.6) Test 02/14/17 03:48 White Blood Count 6.3th/mm3 (3.8-10.1) Red Blood Count 3.23mil/mm3 (3.90-5.20) Hemoglobin 10.2g/dL (12.0-15.6) Hematocrit 30.9% (35.0-46.0) Mean Corpuscular Volume 95.7fL (81-100) Mean Corpuscular Hemoglobin 31.6pg (27.0-35.0) Mean Corpuscular Hemoglobin Concent 33.0% (32.0-37.0) Red Cell Distribution Width 12.9% (12.3-15.4) Platelet Count 154bil/L (150-400) Neutrophils (%) (Auto) 70.0% (40-74) Lymphocytes (%) (Auto) 8.6% (14-46) Monocytes (%) (Auto) 12.0% (4-12) Eosinophils (%) (Auto) 8.6% (0-5) Basophils (%) (Auto) 0.6% (0-3) Prothrombin Time 17.2sec (8.1-12.5) Prothromb Time International Ratio 1.59ratio Sodium Level 143mEq/L (134-144) Potassium Level 4.6mEq/L (3.5-5.2) Chloride Level 103mEq/L (97-108) Carbon Dioxide Level 23mmol/L (18-29) Blood Urea Nitrogen 44mg/dL (8-27) Creatinine 1.11mg/dL (0.57-1.00) Estimat Glomerular Filtration Rate 68mL/min (>59) Glucose Level 136mg/dL (60-99) Calcium Level 8.4mg/dL (8.5-10.1) Total Bilirubin 1.2mg/dL (0.0-1.2) Aspartate Amino Transf (AST/SGOT) 22U/L (0-50) Alanine Aminotransferase (ALT/SGPT) 14U/L (0-32) Alkaline Phosphatase 50U/L (25-165) Total Protein 6.2g/dL (6.4-8.4) Albumin 3.5g/dL (3.4-5.0) Discharge Medications Discharge Medications ([slow mag]) 286 MG PO BID (Reported) Acetaminophen (Acetaminophen) 500 Mg Capsule 500-1,000 MG PO Q4-6 HR PRN ( Reported) Carvedilol (Carvedilol) 6.25 Mg Tablet 6.25 MG PO QPM (Reported) Carvedilol (Carvedilol) 6.25 Mg Tablet 12.5 MG PO QAM (Reported) Ezetimibe (Zetia) 10 Mg Tablet 10 MG PO DAILY (Reported) Losartan Potassium (Losartan Potassium) 50 Mg Tablet 50 MG PO BID (Reported) Metformin ER (Glucophage XR) 500 Mg Tab.er.24h 500 MG PO BID (Reported) Paroxetine (Paroxetine) 20 Mg Tablet 20 MG PO DAILY (Reported) Rosuvastatin Calcium (Crestor) 5 Mg Tablet 10 MG PO HS Prescribed by: LUANNE NGO, Torsemide (Torsemide) 5 Mg Tablet 10 MG PO AM (Reported) Warfarin Sodium (Warfarin Sodium) 5 Mg Tablet 2.5 MG PO WEEKLY (Reported) Miscellaneous Medications Warfarin Sodium (Warfarin Sodium) 5 Mg Tablet 5 MG PO (Reported) EVERYDAY EXCEPT SATURDAY Additional med instructions Restart your warfarin with close follow up in the Coumadin clinic to ensure you get back to therapeutic levels. Your Simvastatin has been increased to 10mg daily. You have an appointment with Stef Mann PA-C, on 02/21. Wear your home oxygen as prescribed to prevent shortness of breath. We will coordinate a night oxygenation study to see if your CPAP is sufficient. I have referrals in to the CHF clinic and they will contact you regarding ongoing evaluation. Follow up with Dr. Rader in 1-2 weeks to go over your hospital admission. Followup Plan Discharge Diet: Heart Healthy, Diabetic Discharge Activity: Limited until seen by PCP Follow-up Provider: Valeriano Rader MD Follow-up with PCP in: 1 week (hospital follow up) Provider: Neal Meier MD Follow-up in: 4 weeks (already has appointment scheduled) Time spent Greater than 30 minutes was spent in preparation of discharge with greater than 50% of that time dedicated to patient counseling and coordination of care. . Attending Statement The patient was seen and examined together with Dr. Ngo on 02/14/2017 and I agree with the history, exam and plan as outlined in the note above. . copies to: Valeriano Rader MD; Neal Meier MD, Jeffery S DO Feb 14, 2017 16:40 Neal Cerda MD Feb 14, 2017 17:33 copies to: Valeriano Rader MD; Neal Meier MD, Jeffery S DO Feb 14, 2017 16:40
== END 2017-02-14 13:47 | disposition home or self-care (01) | DRG 286 ==
LOC: SED 06:06 → OBSVTOIN 08:45 → PCC 08:45
PROVIDERS: ADMIT Internal Medicine; ATTEND Internal Medicine
PROC: 5A09457 Assistance with Respiratory Ventilation, 24-96 Consecutive Hours, Continuous Positive Airway Pressure (ICD-10-PCS; 2017-02-10)
PROC: 4A033R1 Measurement of Arterial Saturation, Peripheral, Percutaneous Approach (ICD-10-PCS; 2017-02-10)
PROC: 4A023N7 Measurement of Cardiac Sampling and Pressure, Left Heart, Percutaneous Approach (ICD-10-PCS; principal; 2017-02-13)
PROC: B2111ZZ Fluoroscopy of Multiple Coronary Arteries using Low Osmolar Contrast (ICD-10-PCS; 2017-02-13)
PROC: B2151ZZ Fluoroscopy of Left Heart using Low Osmolar Contrast (ICD-10-PCS; 2017-02-13)
DX: I49.5 Sick sinus syndrome (principal); J96.21 Acute and chronic respiratory failure with hypoxia; I50.21 Acute systolic (congestive) heart failure; I48.1 Persistent atrial fibrillation; I51.81 Takotsubo syndrome; G47.33 Obstructive sleep apnea (adult) (pediatric); E66.9 Obesity, unspecified; F32.9 Major depressive disorder, single episode, unspecified; I25.10 Atherosclerotic heart disease of native coronary artery without angina pectoris; I25.9 Chronic ischemic heart disease, unspecified; Z79.01 Long term (current) use of anticoagulants; Z68.37 Body mass index [BMI] 37.0-37.9, adult; Z71.3 Dietary counseling and surveillance; Z99.81 Dependence on supplemental oxygen; Z91.19 Patient's noncompliance with other medical treatment and regimen